=== PATIENT | female | born 1985 | race Caucasian/White ===

== ENCOUNTER 2019-08-09 14:20 | Outpatient (CLI) | payer BC, SELFPAY ==
--- NOTE | ~2019-08-09 | US_ITS ---
EXAMINATION: US venous doppler LE RT DATE: 08/09/2019 15:14 INDICATION: Right lower limb localized swelling. Third trimester of . TECHNIQUE: Grayscale ultrasound images without and with compression and Doppler ultrasound images of the right lower extremity veins were obtained. COMPARISON: None. FINDINGS: The visualized portions of right common femoral vein, profunda (deep) femoral vein, femoral vein, pop liteal vein, peroneal veins, posterior tibial veins, and greater saphenous vein outflow are patent. IMPRESSION: 1. No deep venous thrombosis. Reviewed, dictated and finalized at location A.
== END 2019-08-09 14:21 | disposition home or self-care (01) ==
PROVIDERS: PCP Obstetrics & Gynecology; Visit Provider Obstetrics & Gynecology
DX: R22.41 Localized swelling, mass and lump, right lower limb (principal)
CPT/HCPCS: 93971

== ENCOUNTER 2019-09-23 01:44 | Inpatient (IN) | payer BC, SELFPAY ==
[2019-09-23] VITALS (77 sets, daily range): BP systolic 85–146; BP diastolic 45–86; PULSE 72–123; RESP 18; TEMP 36.6–37.3; O2SAT 85–100; BMI 24.3
--- NOTE | 2019-09-23 01:44 | LDADM ---
This patient, Kojo Linares, was admitted to Labor/Delivery/Recovery 104 on 09/23/19 at 01:44. Plans for labor, pain management and were discussed with patient. Patient/family oriented to hospital policies and general routines including ID bracelet, bed and alarms, visiting hours, pain management, procedures, bathroom and other care routines, personal items, smoking policy, room service/diet and guest tray routines, security routines, and visiting hours. Patient/Family are encouraged to report perceived risks to care and to ask questions if they do not understand what they are told or what they should do. See OBIX for further documentation.
[2019-09-23] MEDS: LACTATED RINGERS 1,000 ML 999 ML IV CONT (04:05)
[2019-09-23 04:24] LABS: Basophils Absolute Auto 0.1 K/mm3 (0.0-0.1); Basophils Percent Auto 0.3 % (0.2-1.2); Eosinophils Absolute Auto 0.1 K/mm3 (0-0.3); Eosinophils Percent Auto 0.3 % (0-4.4); Hematocrit 34.7 % (37.0-47.0); Hemoglobin 11.7 g/dL (12.0-15.0); Immature Granulocyte Absolute 0.33 K/mm3 (0.00-0.031); Immature Granulocyte Percent A 1.9 % (0-0.5); Lymphocytes Absolute Auto 2.19 K/mm3 (0.9-3.2); Lymphocytes Percent Auto 12.5 % (18.3-44.2); Mean Corpuscular HGB Conc 33.7 g/dl (32-36); Mean Corpuscular Hemoglobin 30.5 pg (26-34); Mean Corpuscular Volume 90.6 fl (80-100); Mean Platelet Volume 10.4 fl (7.4-10.4); Monocytes Absolute Auto 0.6 K/mm3 (0.1-0.6); Monocytes Percent Auto 3.5 % (2.6-8.5); Neutrophils Absolute Auto 14.3 K/mm3 (1.3-6.7); Neutrophils Percent Auto 81.5 % (45.5-73.1); Platelet Count Result 278 k/mm3 (150-375); Red Blood Count 3.83 M/mm3 (4.2-5.4); Red Cell Distribution Width 13.5 % (11.5-14.5); White Blood Count 17.6 K/mm3 (4.5-10.0)
[2019-09-23] MEDS: LACTATED RINGERS 1,000 ML 125 ML IV CONT (04:35)
--- NOTE | 2019-09-23 04:55 | WPDANESEPPF ---
Anes - Initial Pre Proc Eval Procedure: labor epidural Date/Time: 09/23/19 04:55 Surgeon: Jaswant Hu MD Pre Op Diagnosis: labor pain Pre Op Diagnosis: Ctx Patient Data Age: 33 Gender: F Height: Weight: Last Vital Signs Pulse 111 H 09/23/19 04:52 BP 110/75 09/23/19 04:52 Pulse Ox 98 09/23/19 04:53 Allergies Allergy/AdvReac Type Severity Reaction Status Date / Time Sulfa (Sulfonamide Allergy Unknown Verified 08/31/19 13:36 Antibiotics) Home Medications Medication Instructions Recorded Confirmed Type PNV cmb#95-ferrous fumarate-FA 1 tablet PO DAILY 08/31/19 08/31/19 History [] Laboratory Tests 09/23/19 09/23/19 04:08 04:08 WBC 17.6 K/mm3 H K/mm3 (4.5-10.0) RBC 3.83 M/mm3 L M/mm3 (4.2-5.4) Hgb 11.7 g/dL L g/dL (12.0-15.0) Hct 34.7 % L % (37.0-47.0) MCV 90.6 fl fl (80-100) MCH 30.5 pg pg (26-34) MCHC 33.7 g/dl g/dl (32-36) RDW 13.5 % % (11.5-14.5) Plt Count 278 k/mm3 k/mm3 (150-375) MPV 10.4 fl fl (7.4-10.4) Immature Gran % (Auto) 1.9 % H % (0-0.5) Neut % (Auto) 81.5 % H % (45.5-73.1) Lymph % (Auto) 12.5 % L % (18.3-44.2) [place] % (Auto) 3.5 % % (2.6-8.5) Eos % (Auto) 0.3 % % (0-4.4) Baso % (Auto) 0.3 % % (0.2-1.2) Lymph # (Auto) 2.19 K/mm3 K/mm3 (0.9-3.2) [place] # (Auto) 0.6 K/mm3 K/mm3 (0.1-0.6) Eos # (Auto) 0.1 K/mm3 K/mm3 (0-0.3) Baso # (Auto) 0.1 K/mm3 K/mm3 (0.0-0.1) Abs Immat Gran (auto) 0.33 K/mm3 H K/mm3 (0.00-0.031) Absolute Neuts (auto) 14.3 K/mm3 H K/mm3 (1.3-6.7) Absolute Nucleated RBC 0.0 K/mm3 K/mm3 (0.0-0.012) Nucleated RBC % 0.0 % % (0.0-0.2) RPR Pending Patient hx anesthesia problems: none Family hx anesthesia problems: none PMFSH Family History Family History Father Heart attack Hypertension Mother Hypertension Social History Social History Smoking status: Never smoker Substance use: never Gender identity (if verbalized by the patient): Female Spiritual care concerns: No Anes - Eval Final PreProcedure Day of Procedure 09/23/19 04:55 Patient weight: overweight Heart: regular rate and rhythm Lungs: clear to auscultation and normal air movement Airway: Mallampati scale class II Neurological: alert and oriented ASA classification: II Anesthetic plan: proceed Anesthesia type and monitoring: regional epidural and standard monitoring Informed Consent: The patient's anesthetic plan and its attendant risks and benefits were discussed with the patient/family/POA. Questions were solicited and answers provided to the satisfaction of the patient/family/POA.
--- NOTE | 2019-09-23 05:40 | P.HPUP_ITS ---
History and Physical Update Update Date/Time: 09/23/19 05:40 33 yo at 38w6d who presents in labor. She endorses good FM. She denies vaginal bleeding or LOF. Her has been uncomplicated thus far. History and Physical has been reviewed, including an updated exam of the patien t. There are NO changes in the patient's condition. Risks, benefits, and alternatives have been discussed and questions answered. Patient agrees to proceed with procedure. A/P: 33 you G1 at 38w6d admit to L&D routine admission orders Rh+ GBS neg FHT cat 1 regular ctx on Divide continuous EFM expectant mangement
--- NOTE | 2019-09-23 08:28 | PM.OBPRVD ---
OB - Delivery Note Procedure Procedure: Patient pushed for a spontaneous vaginal delivery. The fetus was delivered atraumatically and placed on the maternal abdomen. The cord was clamped and cut after 1 minute of life. The cord was double clamped and cut and a segment of cord was collected for cord gases. Cord blood was collected for blood type and Coomb's testing. The placenta delivered spontaneously and was noted to be intact. The perineum was inspected and there was a 2nd degree perineal laceration. The laceration was repaired with 2-0 vicryl in the usual fashion. The uterus was firm and good hemostasis was noted. The patient and fetus were stable in the delivery room. Intrapartal events: None Induction method: none Delivery augmentation: rupture of membranes Delivery monitor: external FHT Route of delivery: Episiotomy description: None Laceration description: Perineal - 2nd Degree Delivery repair: vicryl Specimen: No Estimated blood loss (mL): 250 Anesthesia type: Epidural Disposition: floor () Complications: No immediate complications Baby Date of : 09/23/19 Time of : 08:13 Weeks of gestation at delivery: 38 gender: Female presentation: vertex position: Right Occiput Anterior Placenta delivery description: Spontaneous cord vessel description: 3 Vessels score one minute: 8 score five minutes: 9
[2019-09-23] MEDS: OXYTOCIN 30 UNITS/NS 500 ML 30 UNITS/500 ML BAG 125 UNITS IV CONT (09:59)
[2019-09-23] MEDS: IBUPROFEN 600 MG TABLET PO ×2 (11:30→20:07)
--- NOTE | 2019-09-23 17:37 | PC.NURSE ---
Patient transferred to post room #288 via wheelchair. Support person present. Oriented to unit, room, information board, rooming in, admission packet and security measures. Patient verbalizes understanding.
[2019-09-24 05:16] LABS: Hematocrit 31.2 % (37.0-47.0); Hemoglobin 10.4 g/dL (12.0-15.0)
--- NOTE | 2019-09-24 07:41 | PM.OBPNVD ---
OB - PN: Subj Subjective Date/time seen: 09/24/19 07:41 Patient comments: no complaints, pain well controlled and tolerating diet [place] feeding status: exclusively breast feeding Narrative: patient doing well this AM. No complaints. Pain is well controlled. She reports moderate bleeding. She is ambulating and voiding without difficulty. She is tolerating PO. She denies N/V, fever, chills. OB - PN: Obj Data Labs CBC & Chem 7: 09/24/19 04:31 Labs: Laboratory Results - last 24 hr 09/24/19 04:31 Hgb 10.4 L Hct 31.2 L OB - PN A/P Plan day: 1 Plan: routine care Comments: patient doing well H/H stable continue routine care Time Spent With Patient Time: Total time spent is greater than 50% in coordination of care (as documented) at patient's floor/unit and/or counseling patient: Time with patient: less than 15 minutes Review of Systems Review of Systems: All systems reviewed & are unremarkable except as noted in HPI and below Exam Const: General: comfortable and no acute distress Resp: Effort & Inspection: normal respiratory effort Cardio: Rate: regular rate GI: GI Palp: Yes Soft to palpation and No Tenderness to palpation present (GI) Auscultation: normal bowel sounds Other: fundus firm and below umbilicus. Psych: Affect: normal affect
[2019-09-24 08:00] VITALS: BP 128/81; PULSE 85; RESP 18; TEMP 36.8; O2SAT 99
[2019-09-24] MEDS: IBUPROFEN 600 MG TABLET PO ×3 (08:11→22:10)
[2019-09-24] MEDS: DOCUSATE SODIUM 100 MG CAPSULE PO (08:12)
[2019-09-24] MEDS: MULTIVIT/MIN/PREN/FOL AC/IRON TABLET 1 TAB PO (08:12)
--- NOTE | 2019-09-24 12:22 | WPDANLDPN2 ---
Anes-Prog Note L&D Date/Time: 09/24/19 12:22 Comfortable throughout: labor and delivery Neuraxial method: epidural Epidural/Spinal procedure site: clean & non-tender Neuro status: Neuro function grossly intact. Cardiovascular status: normal Respiratory status: normal Airway patency: baseline Mental status: baseline Post-Op hydration status: normal Vital Signs: Last Vital Signs Temp 37.1 C 09/23/19 20:20 Pulse 102 H 09/23/19 20:20 Resp 18 09/23/19 20:20 BP 128/77 09/23/19 20:20 Pulse Ox 98 09/23/19 20:20 Post-procedural complaints: none Patient feedback: Patient satisfied with anesthetic care.
[2019-09-24 19:48] VITALS: BP 128/62; PULSE 106; RESP 18; TEMP 37.2; O2SAT 98
[2019-09-25] MEDS: IBUPROFEN 600 MG TABLET PO (06:42)
[2019-09-25] MEDS: MULTIVIT/MIN/PREN/FOL AC/IRON TABLET 1 TAB PO (06:43)
--- NOTE | 2019-09-25 07:08 | PM.OBDSVD ---
OB - DS: Summary OB Procedures : None OB Procedures Intrapartum: Spontaneous Vag Delivery OB Procedures: : None Status at Discharge Functional status at discharge: independent ambulation Overall status at discharge: patient is back to baseline Time Spent with Patient Time attestation: Total time spent providing and/or coordinating discharge services: Time spent: Less than 30 minutes Exam Const: General: comfortable and no acute distress Resp: Effort & Inspection: normal respiratory effort Auscultation: clear to auscultation bilaterally Cardio: Rate: regular rate GI: GI Palp: Yes Soft to palpation Auscultation: normal bowel sounds Other: Fundus firm below umbilicus Psych: Appearance: grossly normal Mental Status: mental status grossly normal Affect: normal affect Discharge Plan Discharge Consulting providers: Yordy Hurtado Jr. Discharging Clinician: Matthew Choe Patient Disposition: Home, Self-Care Activity: as tolerated and pelvic rest Diet: regular Discharge Instructions: call or return for temperature >100.4, bleeding >2 pads/hr for 2 hrs, pain not controlled with medications, signs/symptoms of mastitis Patient Instructions: Antibiotic Form, Vaginal Delivery (DC) Stand Alone Forms: General Discharge Information Follow-up/Referrals: Jaswant Hu MD [Physician] - Discharge Medications: New Dermoplast (with menthol) 20-0.5 % Aerosol 1 spray topical PRN PRN (Reason: Perineal Discomfort) Qty: 1 RF: 0 Wnt-B-Aceifm Cream 1 applic topical PRN PRN (Reason: Sore Nipples) Qty: 1 RF: 0 ibuprofen 600 mg Tablet 600 mg PO Q6H PRN (Reason: Cramping) Qty: 30 RF: 0 Continued PNV cmb#95-ferrous fumarate-FA [] 28 mg iron- 800 mcg Tablet 1 tablet PO DAILY RF: 0 acetaminophen [Tylenol] 325 mg Tablet 325 mg PO ONCE PRN (Reason: Pain) RF: 0 famotidine [Pepcid] 20 mg Tablet 20 mg PO DAILY PRN (Reason: Heartburn) RF: 0 Discontinued diphenhydramine HCl [Unisom SleepGels] 50 mg Capsule 50 mg PO HS PRN (Reason: Sleep) RF: 0 Date of admission: 09/23/19 01:44 Primary Care Provider: PHYSICIAN,ARCHITECTURE FACULTY MEMBER Admitting Provider: Jaswant Hu Attending physician on admission: Jaswant Hu
[2019-09-25 08:05] VITALS: BP 131/88; PULSE 91; RESP 18; TEMP 37.3; O2SAT 97
[2019-09-25 08:20] LABS: Rapid Plasma Reagin Non-Reactive (NonReactive)
--- NOTE | 2019-09-25 11:15 | PC.NURSE ---
Mother is able to independently latch infant with appropriate positioning/alignment. She denies any nipple discomfort, is feeding as required and waking to feed if needed. has had at least 8 effective feedings in the past 24 hours, and is currently meeting outcomes for weight, output, jaundice and feeding frequencies. Mother will supplement as she feels infant requires. Mother states she will discontinue supplementation when her milk is in and feels infant is more consistent with feedings. Mother states she feels confident to continue effective with supplementation at home. Reviewed transition to breast milk, signs of adequate intake, and engorgement/relief. Instructed to call ICP if intake/output less than required. Reviewed regular medications mother is taking. Information provided per Joanne. Reviewed community resources on the [facility] website and in the Mom/Baby guide. Information on outpatient services provided. Mother has no further questions at this time.
[2019-09-26 10:10] VITALS: BP 121/81; PULSE 101; RESP 20; TEMP 36.8; O2SAT 99
== END 2019-09-25 11:49 | disposition home or self-care (01) | DRG 807 ==
LOC: ANHLDR 04:13 → ANHOB2 09-25 07:09 → ANHLDR 09-26 11:16 → ANHOB2 09-26 11:16
PROVIDERS: Admitting Provider Student in an Organized Health Care Education/Training Program; Visit Provider Student in an Organized Health Care Education/Training Program
DX: O36.8330 Maternal care for abnormalities of the fetal heart rate or rhythm, third trimester, not applicable or unspecified (principal); Z37.0 Single live birth; Z3A.38 38 weeks gestation of pregnancy; O70.1 Second degree perineal laceration during delivery
CPT/HCPCS: 36415; 85014; 85018; 85025; 86592; 86850; 86900; 86901; A9270; J2590; J3010; J7120

== ENCOUNTER 2020-11-14 14:00 | Outpatient (CLI) | payer BC, SELFPAY ==
--- NOTE | ~2020-11-14 | XR_ITS ---
XR sinus min 3V 11/14/2020 14:25 Indication: Chronic sinusitis. Fever. Procedure: 5 views of the paranasal sinuses Comparison: No prior studies for comparison. Findings: There is pneumatization of the sinuses without significant opacification. No air-fluid leve ls. No significant mucoperiosteal reaction is seen. Mastoids are pneumatized. Impression: 1: No significant sinus disease. Reviewed, dictated and finalized at location A. Impression: 1: No significant sinus disease.
== END 2020-11-14 14:01 | disposition home or self-care (01) ==
LOC: ANHIMG 14:05
PROVIDERS: PCP Family Medicine; Visit Provider Family Medicine
DX: J32.9 Chronic sinusitis, unspecified (principal)
CPT/HCPCS: 70220

== ENCOUNTER 2022-08-17 09:02 | Outpatient (CLI) | payer BC, SELFPAY ==
--- NOTE | 2022-08-17 09:21 | EST_ITS ---
Patient Info Name: Kojo Linares Age: 36 years : 1985 Gender: Female Ht: 68 in Wt: 155 lbs BSA: 1.84 m2 HR: 78 bpm BP: 125 / 72 mmHg Heart Rhythm: Sinus Rhythm Exam Date: 08/17/2022 10:00 AM Exam Location: [facility] Stress Patient Status: Outpatient Admit Date: 08/17/2022 Staff Ordering Physician: Loretta Aldridge NP Attending Provider: Loretta Aldridge NP Exercise Technologist: Julissa Diallo CT Exercise Physician: Gumaro Matute DO Exam Type: CA stress test treadmill Study Info Indications R06.09 - Other forms of dyspnea R07.89 - Other chest pain A treadmill exercise stress test was performed. Summary 1. 1. Negative [place] exercise stress test for ischemic ST changes by ECG criteria. 2. 2. Reduced functional capacity, achieving 8.9 METs of workload. 3. 3. Appropriate HR response to exercise. 4. 4. Appropriate HR recovery at 1 minute post exercise. 5. 5. No imaging with stress testing. 6. 6. Patient informed of the above results. Protocol: [place] Stress ECG Details Stage: REST Duration (min): 1 min : 17 sec Speed (mph): 0.0 Grade (%): 0 HR (bpm): 79 SBP (mmHg): 125 DBP (mmHg): 72 METS: --- Stage: REST Duration (min): 6 min : 33 sec Speed (mph): 0.0 Grade (%): 0 HR (bpm): 89 SBP (mmHg): 125 DBP (mmHg): 72 METS: --- Stage: STAGE 1 Duration (min): 1 min : 0 sec Speed (mph): 1.7 Grade (%): 10 HR (bpm): 109 SBP (mmHg): 125 DBP (mmHg): 72 METS: --- Stage: STAGE 1 Duration (min): 2 min : 0 sec Speed (mph): 1.7 Grade (%): 10 HR (bpm): 129 SBP (mmHg): 125 DBP (mmHg): 72 METS: --- Stage: STAGE 1 Duration (min): 3 min : 0 sec Speed (mph): 1.7 Grade (%): 10 HR (bpm): 135 SBP (mmHg): 150 DBP (mmHg): 71 METS: --- Stage: STAGE 2 Duration (min): 1 min : 0 sec Speed (mph): 2.5 Grade (%): 12 HR (bpm): 140 SBP (mmHg): 150 DBP (mmHg): 71 METS: --- Stage: STAGE 2 Duration (min): 2 min : 0 sec Speed (mph): 2.5 Grade (%): 12 HR (bpm): 147 SBP (mmHg): 159 DBP (mmHg): 64 METS: --- Stage: STAGE 2 Duration (min): 3 min : 0 sec Speed (mph): 2.5 Grade (%): 12 HR (bpm): 153 SBP (mmHg): 159 DBP (mmHg): 64 METS: --- Stage: STAGE 3 Duration (min): 1 min : 0 sec Speed (mph): 3.4 Grade (%): 14 HR (bpm): 160 SBP (mmHg): 155 DBP (mmHg): 69 METS: --- Stage: STAGE 3 Duration (min): 1 min : 0 sec Speed (mph): 3.4 Grade (%): 14 HR (bpm): 160 SBP (mmHg): 155 DBP (mmHg): 69 METS: --- Stage: RECOVERY Duration (min): 0 min : 59 sec Speed (mph): 0.0 Grade (%): 0 HR (bpm): --- SBP (mmHg): 155 DBP (mmHg): 69 METS: --- Stage: RECOVERY Duration (min): 1 min : 59 sec Speed (mph): 0.0 Grade (%): 0 HR (bpm): --- SBP (mmHg): 155 DBP (mmHg): 69 METS: --- Stage: RECOVERY Duration (min): 2 min : 49 sec Speed (mph): 0.0 Grade (%): 0 HR (bpm): 103 SBP
== END 2022-08-17 09:03 | disposition home or self-care (01) ==
LOC: ANHCARD 09:03
PROVIDERS: PCP Nurse Practitioner Family; Visit Provider Nurse Practitioner
DX: R07.89 Other chest pain (principal); R06.09 Other forms of dyspnea
CPT/HCPCS: 93017

== ENCOUNTER 2024-02-12 12:47 | Outpatient (CLI) | payer BC, SELFPAY ==
--- OUTSIDE RECORDS SUMMARY | 2024-02-19 19:33 | XMS_ITS ---
Author Organization [facility] [employer] Address [address] [place] [address] Care Team Providers Care Front End Assistant Name Role Phone Zoe Kinney Unavailable [phone] Medications Medication SIG (Take, Route, Frequency, Duration) Notes Start Date End Date Status Vyvanse 60 MG 1 capsule in the mor shameka Oral Once a day for 30 days 01/27/2024 Active Social History Sex Assigned At : Social History Observation Description Sex Assigned At Female Encounters Encounter Location Date Provider Diagnosis [facility] [employer] [address] [place] [address] 01/27/2024 Zoe Kinney Attention-deficit hyperactivity disorder, combined type F90.2 Assessments Encounter Date Diagnosis (ICD Code) Assessment Notes Treatment Notes Treatment Clinical Notes Section Notes 01/27/2024 Attention-deficit hyperactivity disorder, combined type (ICD-10 - F90.2) Plan Of Treatment Medication Medication Name Sig Start Date Stop Date Notes Vyvanse 60 MG 1 capsule in the mor shameka Oral Once a day for 30 days 01/27/2024 Next Appt Details Provider Name:Zoe berumen, 03/27/2024 08:30:00 AM, [address], [place], [address], Progress Notes * BELKYS MARTINEZ SDOB:1985 (38 yo F)Acc No.[id number]:01/27/2024 Patient:?BELKYS MARTINEZ :1985???Age:38 Y???Sex:Female Address:[address] [place], [address] * Refills? Refill Vyvanse Capsule, 60 MG, Oral, 30, 1 capsule in the morning, Once a day, 30 days, Refills=0 * true * Date:? 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
--- OUTSIDE RECORDS SUMMARY | 2024-02-19 19:33 | XMS_ITS ---
Author Organization [facility] [employer] Address [address] [facility] [address] [place] [address] Care Team Providers Care Hand Almond Blancher Name Role Phone Zoe Kinney Unavailable [phone] REASON FOR VISIT Refill for Vyvanse Medications Medication SIG (Take, Route, Frequency, Duration) Notes Start Date End Date Status Lisdexamfetamine Dimesylate 50 MG 1 capsule in the morning Orally Once a day for 30 days 01/06/2024 Active Social History Sex Assigned At : Social History Observation Description Sex Assigned At Female Encounters Encounter Location Date Provider Diagnosis [facility] [address] [facility] [address] [place] [address] 01/06/2024 Zoe Kinney Attention-deficit hyperactivity disorder, combined type F90.2 Assessments Encounter Date Diagnosis (ICD Code) Assessment Notes Treatment Notes Treatment Clinical Notes Section Notes 01/06/2024 Attention-deficit hyperactivity disorder, combined type (ICD-10 - F90.2) Plan Of Treatment Medication Medication Name Sig Start Date Stop Date Notes Lisdexamfetamine Dimesylate 50 MG 1 caps ule in the morning Orally Once a day for 30 days 01/06/2024 Next Appt Details Provider Name:Zoe berumen, 03/27/2024 08:30:00 AM, [address], [facility] [address], [place], [address], Progress Notes * BELKYS MARTINEZ SDOB:1985 (38 yo F)Acc No.[id number]:01/06/2024 Patient:?BELKYS MARTINEZ :1985???Age:38 Y???Sex:Female Address:[facility] [address] [place], [address] * Refills? Refill Lisdexamfetamine Dimesylate Capsule, 50 MG, Orally, 30, 1 capsule in the morning, Once a day, 30 days, Refills=0 * true * Date:? 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
--- OUTSIDE RECORDS SUMMARY | 2024-02-19 19:33 | XMS_ITS | Patient Health Record ---
Author Organization [facility] As [facility] Address [address] [place] [address] Care Team Providers Care Detective Chief Name Role Phone Zoe Kinney Unavailable [phone] Viri Coleman Unavailable [phone] Munira Rowley Unavailable [phone] Elise Haider Unavailable [phone] Migration, Provider Unavailable Unavailable Allergies Allergen (clinical drug ingredient) Drug/Non Drug Allergy documented on EMR Reaction Allergy Type Onset Date Status Substance with sulfonamide structure and antibacterial mechanism of action (substance) SULFA (SULFONAMIDE ANTIBIOTICS) (uncoded) Unknown Allergy 05/27/2023 Active Results Component Value Reference Range Notes DRUG SCREEN, 14 DRUGS (DETEC TIMED), URINE Reviewed date:05/27/2023 12:00:00 AM Interpretation: Performing Lab: Notes/Report: Amphetamine positive Barbiturates negative Benzodiazipine negative Buprenorphine negative Cocaine negative MDMA/Ectasy negative Methadone negative Methamphetamine negative Morphine negative Oxycodone negative Phenocyclidine negative THC negative UDT Reviewed date:08/30/2023 09:22:35 PM Interpretation: Performing Lab: Notes/Report: THC neg 0 - 50 ng/ml Cocaine neg 0 - 300 ng/ml Amphetamine pos 0 - 1000 ng/ml Buprenorphine (BUP) neg 0 - 10 ng/ml Secobarbital (Bar) neg 0 - 300 ng/ml Oxazepam (BZO) neg 0 - 300 ng/ml 4-wifynffpgr-5,1-vhrnvvby-5, 3-diphenylpyrrolidine (EDDP) neg 0 - 300 ng/ml Methamphetamine (MET) neg 0 - 1000 ng/ml Methylenedioxymethamphetamine (MDMA) neg 0 - 500 ng/ml Morphine (MOP 300/[id number]) neg 0 - 300 ng/ml Methadone (MTD) neg 0 - 300 ng/ml Phencyclidine (PCP) neg 0 - 25 ng/ml Propoxyphene (PPX) neg 0 - 300 ng/ml Nortriptyline (TCA) neg 0 - 1000 ng/ml UDT Reviewed date:01/25/2024 10:54:37 PM Interpretation: Performing Lab: Notes/Report: THC n 0 - 50 ng/ml Cocaine n 0 - 300 ng/ml Amphetamine p 0 - 1000 ng/ml Buprenorphine (BUP) n 0 - 10 ng/ml Secobarbital (Bar) n 0 - 300 ng/ml Oxazepam (BZO) n 0 - 300 ng/ml 3-nfucuwhjpq-5,8-qqzhhwfq-8, 3-diphenylpyrrolidine (EDDP) n 0 - 300 ng/ml Methamphetamine (MET) n 0 - 1000 ng/ml Methylenedioxymethamphetamine (MDMA) n 0 - 500 ng/ml Morphine (MOP 300/[id number]) n 0 - 300 ng/ml Methadone (MTD) n 0 - 300 ng/ml Phencyclidine (PCP) n 0 - 25 ng/ml Propoxyphene (PPX) n 0 - 300 ng/ml Nortriptyline (TCA) n 0 - 1000 ng/ml Oxycodone n 0 - 300 ng/ml Reason For Referral No Information Medications Medication SIG (Take, Route, Frequency, Duration) Notes Start Date End Date Status Tretinoin 0.05 % External 05/27/2023 Ac tive Multivitamin Adults Oral 05/27/2023 Active Vyvanse 60 MG 1 capsule in the morning Oral Once a day for 30 days 01/27/2024 Active buPROPion HCl ER (XL) 150 MG 1 tablet in the morning Oral Once a day for 90 days Active Sertraline HCl 100 MG 1.5 tablet Oral On ce a day for 90 days 05/27/2023 Active traZODone HCl 50 MG 1 tablet at bedtime as needed Oral Once a day for 90 days 05/27/2023 Active Lisdexamfetamine Dimesylate 50 MG 1 capsule in the morning Orally Once a day for 30 days 01/06/2024 Active Benzonatate 100 MG Oral 05/27/2023 Active Social History Tobacco Use: Social History Observation Description Date Details (start date - stop date) Never Smoker NA - NA Sex Assigned At : Social History Observation Description Sex Assigned At Female Tobacco Control (Standard) Question Answer Notes Tobacco use: Nonsmoker AUDIT-C (Standard) Question Answer Notes Did you have a drink contain ing alcohol in the past year? Yes How often did you have six o r more drinks on one occasion in the past year? Never (0 point) How many drinks did you have on a typical day when you were drinking in the past year? 1 or 2 drinks (0 point) How often did you have a dri nk containing alcohol in the past year? Monthly or less (1 point) Section Notes: Social History Substance Use Do you or have you ever smoked tobacco?: Never smoker How much tobacco do you smoke?: None Do you or have you ever used e-cigarettes or vape?: Never used electronic cigarettes What was the date of your most recent tobacco screening?: 05/27/2023 Has tobacco cessation counseling been provided?: No What is your level of alcohol consumption?: None Do you use any illicit or recreational drugs?: No Which illicit or recreational drugs have you used?: THC Have you used IV drugs?: No What is your level of caffeine consumption?: Moderate Education and Occupation What is the highest grade or level of school you have completed or the highest degree you have received?: Bachelor's degree (e.g., BA, AB, BS) Are you currently employed?: Yes Who is your employer?: [employer] 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 What is your relationship status?: Are you sexually active?: Yes Do you use protection during sex?: Usually How many children do you have?: 1 Home and Environment Are there any guns present in your home?: No Lifestyle Do you feel stressed (tense, restless, nervous, or anxious, or unable to sleep at night)?: To some extent Advance Directive Do you have an advance directive?: No Do you have a medical power of consumer attorney?: No Public Health and Travel Have you been to an area known to be high risk for COVID-19?: No Gender Identity and LGBTQ Identity Gender identity: Identifies as Female Assigned sex at : Female Sexual orientation: Straight or heterosexual Social History Substance Use Do you or have you ever smoked tobacco?: Never smoker How much tobacco do you smoke?: None Do you or have you ever used e-cigarettes or vape?: Never used electronic cigarettes What was the date of your most recent tobacco screening?: 05/27/2023 Has tobacco cessation counseling been provided?: No What is your level of alcohol consumption?: None Do you use any illicit or recreational drugs?: No Which illicit or recreational drugs have you used?: THC Have you used IV drugs?: No What is your level of caffeine consumption?: Moderate Education and Occupation What is the highest grade or level of school you have completed or the highest degree you have received?: Bachelor's degree (e.g., BA, AB, BS) Are you currently employed?: Yes Who is your employer?: [employer] 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 What is your relationship status?: Are you sexually active?: Yes Do you use protection during sex?: Usually How many children do you have?: 1 Home and Environment Are there any guns present in your home?: No Lifestyle Do you feel stressed (tense, restless, nervous, or anxious, or unable to sleep at night)?: To some extent Advance Directive Do you have an advance directive?: No Do you have a medical power of consumer attorney?: No Public Health and Travel Have you been to an area known to be high risk for COVID-19?: No Gender Identity and LGBTQ Identity Gender identity: Identifies as Female Assigned sex at : Female Sexual orientation: Straight or heterosexual Social History Substance Use Do you or have you ever smoked tobacco?: Never smoker How much tobacco do you smoke?: None Do you or have you ever used e-cigarettes or vape?: Never used electronic cigarettes What was the date of your most recent tobacco screening?: 05/27/2023 Has tobacco cessation counseling been provided?: No What is your level of alcohol consumption?: None Do you use any illicit or recreational drugs?: No Which illicit or recreational drugs have you used?: THC Have you used IV drugs?: No What is your level of caffeine consumption?: Moderate Education and Occupation What is the highest grade or level of school you have completed or the highest degree you have received?: Bachelor's degree (e.g., BA, AB, BS) Are you currently employed?: Yes Who is your employer?: [employer] 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 What is your relationship status?: Are you sexually active?: Yes Do you use protection during sex?: Usually How many children do you have?: 1 Home and Environment Are there any guns present in your home?: No Lifestyle Do you feel stressed (tense, restless, nervous, or anxious, or unable to sleep at night)?: To some extent Advance Directive Do you have an advance directive?: No Do you have a medical power of consumer attorney?: No Public Health and Travel Have you been to an area known to be high risk for COVID-19?: No Gender Identity and LGBTQ Identity Gender identity: Identifies as Female Assigned sex at : Female Sexual orientation: Straight or heterosexual Social History Substance Use Do you or have you ever smoked tobacco?: Never smoker How much tobacco do you smoke?: None Do you or have you ever used e-cigarettes or vape?: Never used electronic cigarettes What was the date of your most recent tobacco screening?: 05/27/2023 Has tobacco cessation counseling been provided?: No What is your level of alcohol consumption?: None Do you use any illicit or recreational drugs?: No Which illicit or recreational drugs have you used?: THC Have you used IV drugs?: No What is your level of caffeine consumption?: Moderate Education and Occupation What is the highest grade or level of school you have completed or the highest degree you have received?: Bachelor's degree (e.g., BA, AB, BS) Are you currently employed?: Yes Who is your employer?: [employer] 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 What is your relationship status?: Are you sexually active?: Yes Do you use protection during sex?: Usually How many children do you have?: 1 Home and Environment Are there any guns present in your home?: No Lifestyle Do you feel stressed (tense, restless, nervous, or anxious, or unable to sleep at night)?: To some extent Advance Directive Do you have an advance directive?: No Do you have a medical power of consumer attorney?: No Public Health and Travel Have you been to an area known to be high risk for COVID-19?: No Gender Identity and LGBTQ Identity Gender identity: Identifies as Female Assigned sex at : Female Sexual orientation: Straight or heterosexual Problems Problem Type SNOMED Code ICD Code Onset Dates Problem Status W/U Status Risk Notes Problem Mild recurrent major depression (71088573) Major depressive disorder, recurrent, mild (F33.0) 05/27/19 24 Active confirmed Problem Generalized anxiety disorder (24484422) Generalized anxiety disorder (F41.1) 05/27/19 24 Active confirmed Problem Primary insomnia (4213822) Primary insomnia (F51.01) 05/27/19 24 Active confirmed Problem Attention deficit hyperactivity disorder, combined type (69250546) Attention-deficit hyperactivity disorder, combined type (F90.2) 07/07/19 Active confirmed Problem Obsessive-compuls marshall disorder (601961208) Obsessive-compuls marshall disorder, unspecified (F42.9) 05/27/19 24 Active confirmed Vital Signs Heart Rate 105 /min 01/25/2024 Blood pressure diastolic 75 mm Hg 01/25/2024 Height-cm 172.72 cm 01/25/2024 Weight-kg 67.59 kg 01/25/2024 Height 68.00 in 01/25/2024 Blood pressure systolic 114 mm Hg 01/25/2024 Weight 149 lbs 01/25/2024 BMI 22.65 kg/m2 01/25/2024 Encounters Encounter Location Date Provider Diagnosis [employer] [address] [address] 03/01/2023 Elise Haider Major depressive disorder, recurrent, mild F33.0 ; Primary insomnia F51.01 ; Generalized anxiety disorder F41.1 ; Obsessive-compulsive disorder, unspecified F42.9 and Attention-deficit hyperactivity disorder, combined type F90.2 [employer] [address] [place] [address] 04/01/2023 Elise Haider Attention-deficit hyperactivity disorder, combined type F90.2 ; Primary insomnia F51.01 ; Generalized anxiety disorder F41.1 ; Major depressive disorder, recurrent, mild F33.0 and Obsessive-compulsive disorder, unspecified F42.9 [facility] [address] [facility] [address] [place] [address] 04/29/2023 Elise Haider Obsessive-compulsive disorder, unspecified F42.9 ; Major depressive disorder, recurrent, mild F33.0 ; Generalized anxiety disorder F41.1 ; Primary insomnia F51.01 and Attention-deficit hyperactivity disorder, combined type F90.2 [place] [address] [facility] [address] [place] [address] 05/27/2023 Elisecristobal Haider Other detention (current) drug therapy Z79.899 ; Attention-deficit hyperactivity disorder, combined type F90.2 ; Major depressive disorder, recurrent, mild F33.0 ; Obsessive-compulsive disorder, unspecified F42.9 ; Generalized anxiety disorder F41.1 and Primary insomnia F51.01 [facility] [employer] [address] 07/07/2023 Simone Lai Attention-deficit hyperactivity disorder, combined type F90.2 [facility] [place] [address] [facility] [address] [place] [address] 08/30/2023 Elise Haider Attention-deficit hyperactivity disorder, combined type F90.2 ; Major depressive disorder, recurrent, mild F33.0 ; Obsessive-compulsive disorder, unspecified F42.9 ; Generalized anxiety disorder F41.1 and Primary insomnia F51.[address] [address] 09/29/2023 Elise Haider Attention-deficit hyperactivity disorder, combined type F90.2 ; Major depressive disorder, recurrent, mild F33.0 ; Obsessive-compulsive disorder, unspecified F42.9 ; Generalized anxiety disorder F41.1 and Primary insomnia F51.01 [facility] [place] [id number] [facility] [address] [place] [address] 10/06/2023 Viri Martinez Attention-deficit hyperactivity disorder, combined type F90.2 ; Major depressive disorder, recurrent, mild F33.0 ; Obsessive-compulsive disorder, unspecified F42.9 and Generalized anxiety disorder F41.1 [facility] [place] [address] [place] [address] 11/10/2023 Elisecristobal Haider Attention-deficit hyperactivity disorder, combined type F90.2 ; Major depressive disorder, recurrent, mild F33.0 ; Obsessive-compulsive disorder, unspecified F42.9 ; Generalized anxiety disorder F41.1 and Primary insomnia F51.01 [facility], [facility] [address] [place] [address] 12/09/2023 Viri Martinez Attention-deficit hyperactivity disorder, combined type F90.2 ; Major depressive disorder, recurrent, mild F33.0 ; Obsessive-compulsive disorder, unspecified F42.9 and Generalized anxiety disorder F41.1 [facility] [address] [place] [address] 01/25/2024 Zoe Goodeaisha Attention-deficit hyperactivity disorder, combined type F90.2 ; Major depressive disorder, recurrent, mild F33.0 ; Generalized anxiety disorder F41.1 ; Obsessive-compulsive disorder, unspecified F42.9 and Primary insomnia F51.01 [facility], [facility] [address] [place] [address] 04/29/2023 Provider Migration [facility], [facility] [address] [place] [address] 05/31/2023 Provider Migration [facility], [facility] [address] [place] [address] 07/07/2023 Provider Migration [facility], [facility] [address] [place] [address] 07/08/2023 Provider [facility], [facility] [address] [place] [address] 07/10/2023 Provider Migration [facility], [facility] [address] [place] [address] 07/11/2023 Provider Migration [facility], [facility] [address] [place] [address] 12/27/2023 Elise Haider [facility], [facility] [address] [place] [address] 08/04/2023 Elise Haider [facility], [facility] [address] [place] [address] 08/19/2023 Elise Haider [facility], [facility] [address] [place] [address] 09/24/2023 Munira Rowley Attention-deficit hyperactivity disorder, combined type F90.2 [facility], [facility] [address] [place] [address] 10/12/2023 Elise Haider [facility], [facility] [address] [place] [address] 10/15/2023 Elisecristobal Haider [facility], [facility] [address] [place] [address] 10/29/2023 Elise Haider [facility], [facility] [address] [place] [address] 10/29/2023 Elise Meliza Attention-deficit hyperactivity disorder, combined type F90.2 [facility], [facility] [address] [place] [address] 10/29/2023 Elise Haider [facility], [facility] [address] [place] [address] 12/03/2023 Elise Haider Attention-deficit hyperactivity disorder, combined type F90.2 and Major depressive disorder, recurrent, mild F33.0 [facility], [facility] [address] [place] [address] 12/18/2023 Elisecristobal Bedollatabatha [facility], [facility] [address] [place] [address] 12/20/2023 Elise Bedollapollomoonpolo [facility], [facility] [address] [place] [address] 12/20/2023 Elise Graemetabatha [facility], [facility] [address] [place] [address] 01/06/2024 Zoe Kinney Attention-deficit hyperactivity disorder, combined type F90.2 [facility], [facility] [address] [place] [address] 01/27/2024 Zoe Kinney Attention-deficit hyperactivity disorder, combined type F90.2 Assessments Encounter Date Diagnosis (ICD Code) Assessment Notes Treatment Notes Treatment Clinical Notes Section Notes 08/30/2023 Attention-defic it hyperactivity disorder, combined type (ICD-10 - F90.2) UDS +amph some increase in OCD type thoughts. discuss options, increase sertraline potentially decrease stimulant if making more anxious (she does not think it is-but more stressors), or wait for therapy. She would actually like to try decrease bupropion instead and see, review possible discontinuation effects. scheduled for therapy intake with Viri next month f/u 1 month, earlier if concerns send scripts to [facility] except vyvanse, she is going to check local pharmacy to see if they have in stock and let us know. med: cont vyvanse 50mg qam 08/30/2023 Major depressive disorder, recurrent, mild (ICD-10 - F33.0) decrease bupropion xl to 150mg qam 01/27/2024 Attention-defic it hyperactivity disorder, combined type (ICD-10 - F90.2) 12/03/2023 Attention-defic it hyperactivity disorder, combined type (ICD-10 - F90.2) 01/06/2024 Attention-defic it hyperactivity disorder, combined type (ICD-10 - F90.2) 01/25/2024 Major depressive disorder, recurrent, mild (ICD-10 - F33.0) Assessment and Plan: 1. ADHD - notes vyvanse is beneficial but expresses concerns with continued concentration deficits. Adderall more effect in past but not tolerable. - hesitancy previously for vyvanse to worsen anxiety and/or OCD, but does not appear to have made a difference. Plan: - increase vyvanse to 60 mg qam, (note prefers brand name) - monitor for activation worsening anxiety and/or OCD symptoms 2. depression - stable, some days down mood, lack of motivation, but manageable Plan: - Continue sertraline 150 mg daily - Continue bupropion xl 150 mg daily 3. anxiety/OCD - Patient reports anxiety and OCD symptoms as mininmal, manageable and better than before Plan: - continue medications as above 4. Insomnia - Patient reports good sleep with trazodone, has been taking it for almost 10 years Plan: - continue trazodone 50 mg at bedtime Follow up in 2 months, sooner if concens arise 12/09/2023 Attention-defic it hyperactivity disorder, combined type (ICD-10 - F90.2) OCD and Intrusive Thoughts - Assessment: Kojo reports experiencing anxiety primarily stemming from OCD and intrusive thoughts, which are less frequent but still present. She is currently on sertraline 100 mg and clonazepam 0.5 mg, which she finds beneficial and has no plans to discontinue. - Plan: - Continue current medication regimen of sertraline 100 mg and clonazepam 0.5 mg. - Monitor the frequency and intensity of intrusive thoughts and OCD symptoms in subsequent sessions. Anxiety Management - Assessment: Kojo expresses ongoing anxiety related to various life stressors including work and family health concerns. She scores her anxiety as 3 out of 10, indicating moderate levels that fluctuate based on external factors. Kojo mentions feeling nervous, anxious, or on edge more than half the days. - Plan: - Introduce and explore the DARE method, focusing on techniques such as defusing, allowing, running toward, and engaging with anxiety. - Encourage Kojo to read or listen to the DARE book to further her understanding and application of these techniques. - Consider integrating cognitive behavioral therapy (CBT) and mindfulness practices in future sessions to manage anxiety. - Introduce and practice the tapping technique (Emotional Glady Technique) as an additional coping strategy. Family Dynamics and Support - Assessment: Kojo discusses concerns about her parents' health and the care of her elderly grandmother, contributing to her stress and anxiety levels. Her parents are in their early 70s and experiencing health issues. Her 91-year-old blind grandmother recently moved to assisted living. - Plan: - Encourage open communication with family members regarding health and future planning. - Suggest discussing plans for elder care and end-of-life preferences to reduce uncertainty and anxiety. - Provide support in navigating these family dynamics and reinforce the importance of self-care amidst family caregiving responsibilities. Marital and Social Support - Assessment: Kojo mentions that her 's behavior and lack of understanding regarding her anxiety contribute to her stress, although he does not discourage her from taking medication. There are issues with shared household responsibilities and differing views on managing their child's behavior. - Plan: - Recommend couples counseling to address communication issues and improve mutual understanding and support regarding mental health challenges. - Encourage Kojo to set boundaries regarding complaint-sharing and to implement transition steps to manage stress post-work. - Suggest establishing a structured complaint time or worry time to limit the impact of negative discussions on their relationship. 01/25/2024 Attention-defic it hyperactivity disorder, combined type (ICD-10 - F90.2) Assessment and Plan: 1. ADHD - notes vyvanse is beneficial but expresses concerns with continued concentration deficits. Adderall more effect in past but not tolerable. - hesitancy previously for vyvanse to worsen anxiety and/or OCD, but does not appear to have made a difference. Plan: - increase vyvanse to 60 mg qam, (note prefers brand name) - monitor for activation worsening anxiety and/or OCD symptoms 2. depression - stable, some days down mood, lack of motivation, but manageable Plan: - Continue sertraline 150 mg daily - Continue bupropion xl 150 mg daily 3. anxiety/OCD - Patient reports anxiety and OCD symptoms as mininmal, manageable and better than before Plan: - continue medications as above 4. Insomnia - Patient reports good sleep with trazodone, has been taking it for almost 10 years Plan: - continue trazodone 50 mg at bedtime Follow up in 2 months, sooner if concens arise 04/01/2023 Major depressive disorder, recurrent, mild (ICD-10 - F33.0) 04/01/2023 Generalized anxiety disorder (ICD-10 - F41.1) 04/01/2023 Primary insomnia (ICD-10 - F51.01) 04/01/2023 Attention-defic it hyperactivity disorder, combined type (ICD-10 - F90.2) 04/01/2023 Obsessive-compu lsive disorder, unspecified (ICD-10 - F42.9) 09/29/2023 Major depressive disorder, recurrent, mild (ICD-10 - F33.0) cont bupropion xl 150mg qam tolerated decrease wellbutrin, still having some obsessive thoughts. option to change meds again, increase sertraline, but also she had covid this month, missed meds. she would rather wait and see a little longer, get past being sick, etc. plus starting counseling sent 90 day of scripts last visit (other than vyvanse) f/u in 6 wks, earlier if concerns 09/29/2023 Attention-defic it hyperactivity disorder, combined type (ICD-10 - F90.2) cont vyvanse 50mg qam 11/10/2023 Attention-defic it hyperactivity disorder, combined type (ICD-10 - F90.2) cont vyvanse 50mg qam 10/06/2023 Attention-defic it hyperactivity disorder, combined type (ICD-10 - F90.2) Psychosocial Assessment Presenting Problem I am having intrusive thoughts that won't stop . Pt stated she recalls OCD symptoms starting in middle school (possibly before). She would need to look at the clock at certain times to prevent her from dying. Her parents did not believe in getting her help for either OCD or ADHD. She kept her intrusive thoughts private until last year as she thought it was just anxiety getting worse. Everything got really bad when I had depression . Family Origin (/children ): Kojo was born and raised in [place]. She has an older sister (4.5 years) that lives in [place]. Parents are (pt was 15 years old when they ). Mom is remarried. Dad was remarried but in 2014. Childhood Family Dynamic: Pt and her of 5 years have a 4 year old daughter. They do not plan to have any more children. Trauma/PTSD: Dad was an alcoholic, a closet drinker. He was angry, not physically violent but a bully and annoying. Mom was hypercritical. Education and Occupation: Bachelor's Degree in [email or web address] from [employer]. Then got her associates in [employer]. 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 : None Support System: and co-workers are supportive and helpful. Has a long time friend, a group of 10 internet friends, and some friends from . Sister is identified as helpful and supportive. . Drug/ETOH use/Pattern of use/treatment? My and I drank too much before we had our daughter. It was never an issue. I don't drink much anymore . Medical: None Spirituality: Pt was raised attending a Anglican Taoist. She does not believe in organized episcopalian but hopeful there is a God, afterlife. Other family members with mental illness or substance abuse/addiction issues: Father, recovering alcoholic Mom, anger, depression, and anxiety Sister, depression Legal: None 07/07/2023 Attention-defic it hyperactivity disorder, combined type (ICD-10 - F90.2) 05/27/2023 Major depressive disorder, recurrent, mild (ICD-10 - F33.0) 05/27/2023 Generalized anxiety disorder (ICD-10 - F41.1) 05/27/2023 Primary insomnia (ICD-10 - F51.01) 05/27/2023 Attention-defic it hyperactivity disorder, combined type (ICD-10 - F90.2) 05/27/2023 Other detention (current) drug therapy (ICD-10 - Z79.899) 05/27/2023 Obsessive-compu lsive disorder, unspecified (ICD-10 - F42.9) 04/29/2023 Major depressive disorder, recurrent, mild (ICD-10 - F33.0) 04/29/2023 Generalized anxiety disorder (ICD-10 - F41.1) 04/29/2023 Primary insomnia (ICD-10 - F51.01) 04/29/2023 Attention-defic it hyperactivity disorder, combined type (ICD-10 - F90.2) 04/29/2023 Obsessive-compu lsive disorder, unspecified (ICD-10 - F42.9) 03/01/2023 Major depressive disorder, recurrent, mild (ICD-10 - F33.0) 03/01/2023 Generalized anxiety disorder (ICD-10 - F41.1) 03/01/2023 Primary insomnia (ICD-10 - F51.01) 03/01/2023 Attention-defic it hyperactivity disorder, combined type (ICD-10 - F90.2) 03/01/2023 Obsessive-compu lsive disorder, unspecified (ICD-10 - F42.9) 10/29/2023 Attention-defic it hyperactivity disorder, combined type (ICD-10 - F90.2) 10/06/2023 Major depressive disorder, recurrent, mild (ICD-10 - F33.0) Psychosocial Assessment Presenting Problem I am having intrusive thoughts that won't stop . Pt stated she recalls OCD symptoms starting in middle school (possibly before). She would need to look at the clock at certain times to prevent her from dying. Her parents did not believe in getting her help for either OCD or ADHD. She kept her intrusive thoughts private until last year as she thought it was just anxiety getting worse. Everything got really bad when I had depression . Family Origin (/children ): Kojo was born and raised in [place]. She has an older sister (4.5 years) that lives in [place]. Parents are (pt was 15 years old when they ). Mom is remarried. Dad was remarried but in 2014. Childhood Family Dynamic: Pt and her of 5 years have a 4 year old daughter. They do not plan to have any more children. Trauma/PTSD: Dad was an alcoholic, a closet drinker. He was angry, not physically violent but a bully and annoying. Mom was hypercritical. Education and Occupation: Bachelor's Degree in [employer] from [employer]. Then got her associates in [employer], [employer]. 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 : None Support System: and co-workers are supportive and helpful. Has a long time friend, a group of 10 internet friends, and some friends from . Sister is identified as helpful and supportive. . Drug/ETOH use/Pattern of use/treatment? My and I drank too much before we had our daughter. It was never an issue. I don't drink much anymore . Medical: None Spirituality: Pt was raised attending a Anglican Taoist. She does not believe in organized episcopalian but hopeful there is a God, afterlife. Other family members with mental illness or substance abuse/addiction issues: Father, recovering alcoholic Mom, anger, depression, and anxiety Sister, depression Legal: None 10/06/2023 Obsessive-compu lsive disorder, unspecified (ICD-10 - F42.9) Psychosocial Assessment Presenting Problem I am having intrusive thoughts that won't stop . Pt stated she recalls OCD symptoms starting in middle school (possibly before). She would need to look at the clock at certain times to prevent her from dying. Her parents did not believe in getting her help for either OCD or ADHD. She kept her intrusive thoughts private until last year as she thought it was just anxiety getting worse. Everything got really bad when I had depression . Family Origin (/children ): Kojo was born and raised in [place]. She has an older sister (4.5 years) that lives in [place]. Parents are (pt was 15 years old when they ). Mom is remarried. Dad was remarried but in 2014. Childhood Family Dynamic: Pt and her of 5 years have a 4 year old daughter. They do not plan to have any more children. Trauma/PTSD: Dad was an alcoholic, a closet drinker. He was angry, not physically violent but a bully and annoying. Mom was hypercritical. Education and Occupation: Bachelor's Degree in [employer] from [employer]. Then got her associates in [employer], [employer]. 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 : None Support System: and co-workers are supportive and helpful. Has a long time friend, a group of 10 internet friends, and some friends from . Sister is identified as helpful and supportive. . Drug/ETOH use/Pattern of use/treatment? My and I drank too much before we had our daughter. It was never an issue. I don't drink much anymore . Medical: None Spirituality: Pt was raised attending a Anglican Taoist. She does not believe in organized episcopalian but hopeful there is a God, afterlife. Other family members with mental illness or substance abuse/addiction issues: Father, recovering alcoholic Mom, anger, depression, and anxiety Sister, depression Legal: None 12/09/2023 Major depressive disorder, recurrent, mild (ICD-10 - F33.0) OCD and Intrusive Thoughts - Assessment: Kojo reports experiencing anxiety primarily stemming from OCD and intrusive thoughts, which are less frequent but still present. She is currently on sertraline 100 mg and clonazepam 0.5 mg, which she finds beneficial and has no plans to discontinue. - Plan: - Continue current medication regimen of sertraline 100 mg and clonazepam 0.5 mg. - Monitor the frequency and intensity of intrusive thoughts and OCD symptoms in subsequent sessions. Anxiety Management - Assessment: Kojo expresses ongoing anxiety related to various life stressors including work and family health concerns. She scores her anxiety as 3 out of 10, indicating moderate levels that fluctuate based on external factors. Kojo mentions feeling nervous, anxious, or on edge more than half the days. - Plan: - Introduce and explore the DARE method, focusing on techniques such as defusing, allowing, running toward, and engaging with anxiety. - Encourage Kojo to read or listen to the DARE book to further her understanding and application of these techniques. - Consider integrating cognitive behavioral therapy (CBT) and mindfulness practices in future sessions to manage anxiety. - Introduce and practice the tapping technique (Emotional Glady Technique) as an additional coping strategy. Family Dynamics and Support - Assessment: Kojo discusses concerns about her parents' health and the care of her elderly grandmother, contributing to her stress and anxiety levels. Her parents are in their early 70s and experiencing health issues. Her 91-year-old blind grandmother recently moved to assisted living. - Plan: - Encourage open communication with family members regarding health and future planning. - Suggest discussing plans for elder care and end-of-life preferences to reduce uncertainty and anxiety. - Provide support in navigating these family dynamics and reinforce the importance of self-care amidst family caregiving responsibilities. Marital and Social Support - Assessment: Kojo mentions that her 's behavior and lack of understanding regarding her anxiety contribute to her stress, although he does not discourage her from taking medication. There are issues with shared household responsibilities and differing views on managing their child's behavior. - Plan: - Recommend couples counseling to address communication issues and improve mutual understanding and support regarding mental health challenges. - Encourage Kojo to set boundaries regarding complaint-sharing and to implement transition steps to manage stress post-work. - Suggest establishing a structured complaint time or worry time to limit the impact of negative discussions on their relationship. 09/29/2023 Obsessive-compu lsive disorder, unspecified (ICD-10 - F42.9) cont sertraline 150mg qhs start therapy 11/10/2023 Major depressive disorder, recurrent, mild (ICD-10 - F33.0) stop bupropion xl 150mg qam; monitor mood cont therapy overall doing better. she would like to stop wellbutrin to see if sx manageable with less medications, review pros/cons, discontinuat ion. started counseling, cont f/u in 6 wks, earlier if concerns 01/25/2024 Generalized anxiety disorder (ICD-10 - F41.1) Assessment and Plan: 1. ADHD - notes vyvanse is beneficial but expresses concerns with continued concentration deficits. Adderall more effect in past but not tolerable. - hesitancy previously for vyvanse to worsen anxiety and/or OCD, but does not appear to have made a difference. Plan: - increase vyvanse to 60 mg qam, (note prefers brand name) - monitor for activation worsening anxiety and/or OCD symptoms 2. depression - stable, some days down mood, lack of motivation, but manageable Plan: - Continue sertraline 150 mg daily - Continue bupropion xl 150 mg daily 3. anxiety/OCD - Patient reports anxiety and OCD symptoms as mininmal, manageable and better than before Plan: - continue medications as above 4. Insomnia - Patient reports good sleep with trazodone, has been taking it for almost 10 years Plan: - continue trazodone 50 mg at bedtime Follow up in 2 months, sooner if concens arise 09/24/2023 Attention-defic it hyperactivity disorder, combined type (ICD-10 - F90.2) Electronic Prior Authorization was requested for Vyvanse 50 MG Capsule. Provider can order medication once approval received. 12/03/2023 Major depressive disorder, recurrent, mild (ICD-10 - F33.0) 08/30/2023 Obsessive-compu lsive disorder, unspecified (ICD-10 - F42.9) cont sertraline 150mg qhs 08/30/2023 Generalized anxiety disorder (ICD-10 - F41.1) as aboverefer to therapy 01/25/2024 Obsessive-compu lsive disorder, unspecified (ICD-10 - F42.9) Assessment and Plan: 1. ADHD - notes vyvanse is beneficial but expresses concerns with continued concentration deficits. Adderall more effect in past but not tolerable. - hesitancy previously for vyvanse to worsen anxiety and/or OCD, but does not appear to have made a difference. Plan: - increase vyvanse to 60 mg qam, (note prefers brand name) - monitor for activation worsening anxiety and/or OCD symptoms 2. depression - stable, some days down mood, lack of motivation, but manageable Plan: - Continue sertraline 150 mg daily - Continue bupropion xl 150 mg daily 3. anxiety/OCD - Patient reports anxiety and OCD symptoms as mininmal, manageable and better than before Plan: - continue medications as above 4. Insomnia - Patient reports good sleep with trazodone, has been taking it for almost 10 years Plan: - continue trazodone 50 mg at bedtime Follow up in 2 months, sooner if concens arise 12/09/2023 Obsessive-compu lsive disorder, unspecified (ICD-10 - F42.9) OCD and Intrusive Thoughts - Assessment: Kojo reports experiencing anxiety primarily stemming from OCD and intrusive thoughts, which are less frequent but still present. She is currently on sertraline 100 mg and clonazepam 0.5 mg, which she finds beneficial and has no plans to discontinue. - Plan: - Continue current medication regimen of sertraline 100 mg and clonazepam 0.5 mg. - Monitor the frequency and intensity of intrusive thoughts and OCD symptoms in subsequent sessions. Anxiety Management - Assessment: Kojo expresses ongoing anxiety related to various life stressors including work and family health concerns. She scores her anxiety as 3 out of 10, indicating moderate levels that fluctuate based on external factors. Kojo mentions feeling nervous, anxious, or on edge more than half the days. - Plan: - Introduce and explore the DARE method, focusing on techniques such as defusing, allowing, running toward, and engaging with anxiety. - Encourage Kojo to read or listen to the DARE book to further her understanding and application of these techniques. - Consider integrating cognitive behavioral therapy (CBT) and mindfulness practices in future sessions to manage anxiety. - Introduce and practice the tapping technique (Emotional Glady Technique) as an additional coping strategy. Family Dynamics and Support - Assessment: Kojo discusses concerns about her parents' health and the care of her elderly grandmother, contributing to her stress and anxiety levels. Her parents are in their early 70s and experiencing health issues. Her 91-year-old blind grandmother recently moved to assisted living. - Plan: - Encourage open communication with family members regarding health and future planning. - Suggest discussing plans for elder care and end-of-life preferences to reduce uncertainty and anxiety. - Provide support in navigating these family dynamics and reinforce the importance of self-care amidst family caregiving responsibilities. Marital and Social Support - Assessment: Kojo mentions that her 's behavior and lack of understanding regarding her anxiety contribute to her stress, although he does not discourage her from taking medication. There are issues with shared household responsibilities and differing views on managing their child's behavior. - Plan: - Recommend couples counseling to address communication issues and improve mutual understanding and support regarding mental health challenges. - Encourage Kojo to set boundaries regarding complaint-sharing and to implement transition steps to manage stress post-work. - Suggest establishing a structured complaint time or worry time to limit the impact of negative discussions on their relationship. 11/10/2023 Obsessive-compu lsive disorder, unspecified (ICD-10 - F42.9) cont sertraline 150mg qhs cont therapy 09/29/2023 Generalized anxiety disorder (ICD-10 - F41.1) as abovestart therapy 10/06/2023 Generalized anxiety disorder (ICD-10 - F41.1) Psychosocial Assessment Presenting Problem I am having intrusive thoughts that won't stop . Pt stated she recalls OCD symptoms starting in middle school (possibly before). She would need to look at the clock at certain times to prevent her from dying. Her parents did not believe in getting her help for either OCD or ADHD. She kept her intrusive thoughts private until last year as she thought it was just anxiety getting worse. Everything got really bad when I had depression . Family Origin (/children ): Kojo was born and raised in [place]. She has an older sister (4.5 years) that lives in [place]. Parents are (pt was 15 years old when they ). Mom is remarried. Dad was remarried but in 2014. Childhood Family Dynamic: Pt and her of 5 years have a 4 year old daughter. They do not plan to have any more children. Trauma/PTSD: Dad was an alcoholic, a closet drinker. He was angry, not physically violent but a bully and annoying. Mom was hypercritical. Education and Occupation: Bachelor's Degree in [email or web address] from [employer]. Then got her associates in [employer], [employer]. 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 : None Support System: and co-workers are supportive and helpful. Has a long time friend, a group of 10 internet friends, and some friends from . Sister is identified as helpful and supportive. . Drug/ETOH use/Pattern of use/treatment? My and I drank too much before we had our daughter. It was never an issue. I don't drink much anymore . Medical: None Spirituality: Pt was raised attending a Anglican Tao[employer]. She does not believe in organized episcopalian but hopeful there is a God, afterlife. Other family members with mental illness or substance abuse/addiction issues: Father, recovering alcoholic Mom, anger, depression, and anxiety Sister, depression Legal: None 09/29/2023 Primary insomnia (ICD-10 - F51.01) cont trazodone 50mg qhs PRN insomniapractice good sleep hygiene 12/09/2023 Generalized anxiety disorder (ICD-10 - F41.1) OCD and Intrusive Thoughts - Assessment: Kojo reports experiencing anxiety primarily stemming from OCD and intrusive thoughts, which are less frequent but still present. She is currently on sertraline 100 mg and clonazepam 0.5 mg, which she finds beneficial and has no plans to discontinue. - Plan: - Continue current medication regimen of sertraline 100 mg and clonazepam 0.5 mg. - Monitor the frequency and intensity of intrusive thoughts and OCD symptoms in subsequent sessions. Anxiety Management - Assessment: Kojo expresses ongoing anxiety related to various life stressors including work and family health concerns. She scores her anxiety as 3 out of 10, indicating moderate levels that fluctuate based on external factors. Kojo mentions feeling nervous, anxious, or on edge more than half the days. - Plan: - Introduce and explore the DARE method, focusing on techniques such as defusing, allowing, running toward, and engaging with anxiety. - Encourage Kojo to read or listen to the DARE book to further her understanding and application of these techniques. - Consider integrating cognitive behavioral therapy (CBT) and mindfulness practices in future sessions to manage anxiety. - Introduce and practice the tapping technique (Emotional Glady Technique) as an additional coping strategy. Family Dynamics and Support - Assessment: Kojo discusses concerns about her parents' health and the care of her elderly grandmother, contributing to her stress and anxiety levels. Her parents are in their early 70s and experiencing health issues. Her 91-year-old blind grandmother recently moved to assisted living. - Plan: - Encourage open communication with family members regarding health and future planning. - Suggest discussing plans for elder care and end-of-life preferences to reduce uncertainty and anxiety. - Provide support in navigating these family dynamics and reinforce the importance of self-care amidst family caregiving responsibilities. Marital and Social Support - Assessment: Kojo mentions that her 's behavior and lack of understanding regarding her anxiety contribute to her stress, although he does not discourage her from taking medication. There are issues with shared household responsibilities and differing views on managing their child's behavior. - Plan: - Recommend couples counseling to address communication issues and improve mutual understanding and support regarding mental health challenges. - Encourage Kojo to set boundaries regarding complaint-sharing and to implement transition steps to manage stress post-work. - Suggest establishing a structured complaint time or worry time to limit the impact of negative discussions on their relationship. 11/10/2023 Generalized anxiety disorder (ICD-10 - F41.1) as abovecont therapy 01/25/2024 Primary insomnia (ICD-10 - F51.01) Assessment and Plan: 1. ADHD - notes vyvanse is beneficial but expresses concerns with continued concentration deficits. Adderall more effect in past but not tolerable. - hesitancy previously for vyvanse to worsen anxiety and/or OCD, but does not appear to have made a difference. Plan: - increase vyvanse to 60 mg qam, (note prefers brand name) - monitor for activation worsening anxiety and/or OCD symptoms 2. depression - stable, some days down mood, lack of motivation, but manageable Plan: - Continue sertraline 150 mg daily - Continue bupropion xl 150 mg daily 3. anxiety/OCD - Patient reports anxiety and OCD symptoms as mininmal, manageable and better than before Plan: - continue medications as above 4. Insomnia - Patient reports good sleep with trazodone, has been taking it for almost 10 years Plan: - continue trazodone 50 mg at bedtime Follow up in 2 months, sooner if concens arise 08/30/2023 Primary insomnia (ICD-10 - F51.01) cont trazodone 50mg qhs PRN insomniapractice good sleep hygiene 11/10/2023 Primary insomnia (ICD-10 - F51.01) cont trazodone 50mg qhs PRN insomniapractice good sleep hygiene 08/30/2023 Other Plan Of Treatment Next Appt Details Provider Name:Zoe berumen, 03/27/2024 08:30:00 AM, [address], [facility] [address], [place], [address], Insurance Providers Payer Name Payer Address Payer Phone Subscriber Number Group Number Insured Name Patient Relationship to Insured Coverage Start Date Coverage End Date [facility] Ppo [address] [place] [address] [id number] KOJO MARTINEZ Self - patient is the insured Medical (General) History Medical History History ICD Code Problems: Attention deficit hyperactivit y disorder, combined type Generalized anxiety disorder Mild recurrent major depression Obsessive-compulsive disorder Primary insomnia , Past Psychiatric History: An xiety Disorder,Panic Disorder,Major Depressive Episode abdominal aortic aneurysm: No atrial fibrillation: No chronic fatigue syndrome: No essential tremor: No hyperlipidemia: No hypertension: No Parkinson's disease: No restless leg syndrome: No stroke: No subdural hematoma: No type 1 diabetes mellitus: No type 2 diabetes mellitus: No vitamin B12 deficiency: No vitamin D deficiency: Yes
--- OUTSIDE RECORDS SUMMARY | 2024-02-19 19:33 | XMS_ITS ---
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 Name Role Phone Zoe Kinney Unavailable [phone] Results Component Value Reference Range Notes UDT Reviewed date:01/25/2024 10:54:37 PM Interpretation: Performing Lab: Notes/Report: 0 THC n 0 - 50 ng/ml Cocaine n 0 - 300 ng/ml Amphetamine p 0 - 1000 ng/ml Buprenorphine (BUP) n 0 - 10 ng/ml Secobarbital (Bar) n 0 - 300 ng/ml Oxazepam (BZO) n 0 - 300 ng/ml 7-ehdybrygbn-1,2-jfkzfvnn-3,3-diphenylpyrrolidine (JUDD P) n 0 - 300 ng/ml Methamphetamine (MET) n 0 - 1000 ng/ml Methylenedioxymethamphetamine (MDMA) n 0 - 500 ng/ml Morphine (MOP 300/[id number]) n 0 - 300 ng/ml Methadone (MTD) n 0 - 300 ng/ml Phencyclidine (PCP) n 0 - 25 ng/ml Propoxyphene (PPX) n 0 - 300 ng/ml Nortriptyline (TCA) n 0 - 1000 ng/ml Oxycodone n 0 - 300 ng/ml REASON FOR VISIT follow up depression, anxiety, OCD, ADHD Medications Medication SIG (Take, Route, Frequency, Duration) Notes Start Date End Date Status buPROPion HCl ER (XL) 150 MG 1 tablet in the morning Oral Once a day for 90 days Active Sertraline HCl 100 MG 1.5 tablet Oral On ce a day for 90 days 05/27/2023 Active traZODone HCl 50 MG 1 tablet at bedtime as needed Oral Once a day for 90 days 05/27/2023 Active Vyvanse 60 MG 1 capsule in the morning Oral Once a day for 30 days 01/27/2024 Active Lisdexamfetamine Dimesylate 50 MG 1 capsule in the morning Orally Once a day for 30 days 01/06/2024 Active Tretinoin 0.05 % External 05/27/2023 Ac tive Multivitamin Adults Oral 05/27/2023 Active Benzonatate 100 MG Oral 05/27/2023 Active [...] past year? Monthly or less (1 point) Vital Signs Blood pressure systolic 114 mm Hg 01/25/20 24 Blood pressure diastolic 75 mm Hg 024 Heart Rate 105 /min 01/25/2024 Height 68.00 in 01/25/2024 Weight 149 lbs 01/25/2024 BMI 22.65 kg/m2 01/25/2024 Height-cm 172.72 cm 01/25/2024 Weight-kg 67.59 kg 01/25/2024 Encounters Encounter Location Date Provider Diagnosis [facility] [employer] [facility] [address] [address] 01/25/2024 Zoe Kinney Attention-deficit hyperactivity disorder, combined type F90.2 ; Major depressive disorder, recurrent, mild F33.0 ; Generalized anxiety disorder F41.1 ; Obsessive-compulsive disorder, unspecified F42.9 and Primary insomnia F51.01 Assessments Encounter Date Diagnosis (ICD Code) Assessment Notes Treatment Notes Treatment Clinical Notes Section Notes 01/25/2024 Attention-deficit hyperactivity disorder, combined type (ICD-10 - [...] in 2 months, sooner if concens arise 01/25/2024 Major depressive disorder, recurrent, mild (ICD-10 [...] in 2 months, sooner if concens arise 01/25/2024 Generalized anxiety disorder (ICD-10 - F41.1) [...] in 2 months, sooner if concens arise 01/25/2024 Obsessive-compuls marshall disorder, unspecified (ICD-10 - F42.9) Assessment and [...] in 2 months, sooner if concens arise 01/25/2024 Primary insomnia (ICD-10 - F51.01) Assessment [...] in 2 months, sooner if concens arise Plan Of Treatment Medication Medication Name Sig Start Date Stop Date Notes buPROPion HCl ER (XL) 150 MG 1 tablet in the morning Oral Once a day for 90 days Sertraline HCl 100 MG 1.5 tablet Oral On ce a day for 90 days 05/27/2023 traZODone HCl 50 MG 1 tablet at bedtime as needed Oral Once a day for 90 days 05/27/2023 Vyvanse 60 MG 1 capsule in the mor shameka Oral Once a day for 30 days 01/27/2024 Next Appt Details Follow Up: 2 Months, Reason: Provider Name:Zoe berumen, 03/27/2024 08:30:00 AM, [address], [facility] [address], [place], [address], Progress Notes * BELKYS MARTINEZ SDOB:1985 (38 yo F)Acc No.[id number]:01/25/2024 Patient:?BELKYS MARTINEZ Provider:?Zoe Kinney :1985???Age:38 Y???Sex:Female D ate:01/25/2024 Address:[address] [facility] Subjective: * Chief Complaints: * ???follow up depression, anx iety, OCD, ADHD * HPI: ???General Follow Up:?38 y/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 last visit stopped bupropion xl 150 mg, but in between visits restarted it.?describes no change in mood, some days down, lack of motivation. Some improvement in anxiety, mild and situational, manageable. Reports that her sleep is satisfactory with the use of trazodone. appetite good. Denies SI, symptoms of rose, psychosis, panic attacks. OCD symptoms as stable and not problematic, noting that they are always there but can be brushed aside more easily now. most recent vyvanse refill was sent for generic, which she feels is not as effective as brand name and wishes to stick with brand name for now on. She does feel vyvanse is not as effective as other stimulant she's tried (adderall) but she did not tolerate it well. states option to increase was explored prior but hesitancy with potential to worsen anxiety and?OCD symptoms. with anxiety and OCD overall stble and manageable, now most prevalent concerns is concentration deficits. Agreed to cautiously increase dose. ???History of Presenting Problem:?note: all previous encounters with a different provider, see prior notes for more details 12/03/23: message from patient to provider:?I went about 10 days without taking it (wellbutrin xl) and I was absolutely miserable. I started to take it again and instantly felt better after a few days. I was very, very kearney and felt like I was glued to the couch or bed. ?- restarted bupropion xl 150 mg qam 11/10/23: no med change last visit, denies side effect concerns.?I'm feeling pretty good. Denies depression, denies SI. Anxiety is not terrible, is manageable. The obsessive thoughts have improved too, seems to come and go, but also manageable. Sleeping ok. Not irritable. Appetite ok. finds vyvanse helpful.? saw Viri last month for therapy intake, went good ?-?stop bupropion xl 150mg qam;?cont trazodone 50mg qhs PRN insomnia,?cont sertraline 150mg qhs;?cont vyvanse 50mg qam 09/29/23: decreased wellbutrin, did not have any issues with that. Thinks it is better, notices that the vyvanse maybe working better.? depression still mild maybe a little better, denies SI. anxiety in general still better and manageable, but the OCD type fear thoughts are still present. mostly just have a thought and goes away quickly, then back later. Though last week I skipped medicine several times as had covid last week, and worry about that too. Sleeping good. Appetite no concerns. Not irritable. Jaw clenching not as bad, have if too much caffeine.? ?-?cont bupropion xl 150mg qam,?cont vyvanse 50mg qam,?cont trazodone 50mg qhs PRN insomnia;?cont sertraline 150mg qhs 08/30/23: no med changes last visit, denies side effects.?things are still good. depression mild and intermittent, denies SI. anxiety some but manageable and still better than before. OCD thoughts maybe a little worse, same topics, something going to happen to me, daughter left alone, or about parents.?Maybe due to?some more stressors the last few months with work and health stuff. Still not like it was before. Sleeping good. Appetite fine. Denies concerns for irritable/kearney with stimulant. less jaw clenching with effort to decrease caffeine. ADHD much better managed,? satisfied with where that is. note: some increase in OCD type thoughts.?discuss options, increase sertraline potentially decrease stimulant if making more anxious (she does not think it is- but more stressors), or?wait for therapy. She would actually like to try decrease bupropion instead and see, review possible discontinuation effects ?- decrease bupropion xl to 150mg qam, cont vyvanse 50mg qam,?cont sertraline 150mg qhs,?cont trazodone 50mg qhs PRN insomnia intake info substance use hx: unremarkable other than 2 coffee/am therapy: saw chidi once, did not continue, starting with Viri OCD hx: Thoughts usually about daughter, falling with her, or getting in a car accident etc. anything bad happening to her or me. What would happen to her if me and my , what would happen if I when no one else was home with her. Spend a lot of the day on this, since she was born. Before she was born would have thoughts, but would be like what if my foot came off the break, dwell on these. Or worry about safety instead. Hadn't really told providers about intrusive/obsessive thoughts. having rage, irritable, anxious since child ADHD hx: Onset:?childhood ADHD inattention?poor ability to give close attention to details;?has difficulty sustaining attention in tasks;?makes careless mistakes at work;?does not listen when spoken to directly;?fails to finish work;?has difficulty organizing tasks and activities;?reluctant to engage in tasks that require sustained mental effort;?loses things necessary for tasks or activities;?easily distracted by extraneous stimuli ADHD Associated Symptoms Hyperactivity:?Often fidgets with or taps hands or feet, or squirms in seat.;?Often runs about or climbs in situations where it is not appropriate (adolescents or adults may be limited to feeling restless);?Is often on the go acting as if driven by a motor .;?excessive talking?(sometimes);?blurts out answers before questions have been completed;?Often interrupts or intrudes on others (e.g., butts into conversations or games) Context:?lack of productivity at work;?increased anxiety;?increased depression;?unnecessary arguments;?ongoing cognitive distortions ADHD testing: auditory global and primary test scales invalid. Of remaining scales significant impairment. Consider combined presentation per testing and self rating. Might consider retest. Could also consider neuropsych. My opinion is likely severe adhd causing invalid results. Do not think malingering. ???Depression Screening:?LUIS E-7 (2018 Edition)?Feeling nervous, anxious, or on edge?Several days,?Not being able to stop or control worrying?Several days,?Worrying too much about different things?Several days,?Trouble relaxing?Not at all,?Being so restless that it is hard to sit still?Not at all,?Becoming easily annoyed or irritable?More than half the days,?Feeling afraid as if something awful might happen?Not at all,?Total LUIS E-7 Score?5,?If you checked any problems, how difficult have they made it for you to do your work, take care of things at home, or get along with other people??Somewhat difficult,?Interpretation of Total?(5 to 9) Mild.?Depression screening:?PHQ-9?Little interest or pleasure in doing things?Not at all,?Feeling down, depressed, or hopeless?Several days,?Trouble falling or staying asleep, or sleeping too much?Several days,?Feeling tired or having little energy?Several days,?Poor appetite or overeating?Several days,?Feeling bad about yourself or that you are a failure, or have let yourself or your family down?Not at all,?Trouble concentrating on things, such as reading the newspaper or watching television?Several days,?Moving or speaking so slowly that other people could have noticed; or the opposite, being so fidgety or restless that you have been moving around a lot more than usual?Not at all,?Thoughts that you would be better off or of hurting yourself in some way?Not at all,?Total Score 5,?Interpretation?Mild Depression.?Intervention?Depression Screening Findings?Positve,?Follow-Up for Depression?Mental health treatment assessment, Patient follow-up to return when and if necessary,?Suicide Risk Assessment Performed? ,?Additional Evaluation for Depression?Psychiatric interview and evaluation,?Name of the standardized tool used for adult depression screening:?Patient Health Questionnaire (PHQ-9).?Gilchrist-Suicide Severity Rating Scale:?Suicide Risk (CSRS-screener)?in the past one month Have you wished you were or wished you could go to sleep and not wake up??No,?in the past one month Have you actually had any thoughts of killing yourself??No,?Have you ever done anything, started to do anything, or prepared to do anything to end your life??No.?Past Psychiatric Hospitalizations:?Previous psychiatric hospitalizations?Previous Psychiatric Hospitalization?No.? * ROS:?General / Constitutional:?Patient denies?change in appetite, fatigue, headache, lightheadedness, sleep disturbance, weight gain, weight loss.?Cardiovascular:?Patient denies?chest pain, dizziness, palpitations, swelling in hands / feet.?Gastrointestinal:?Patient denies?abdominal pain, change in bowel habits, nausea, vomiting, difficulty swallowing.?Neurologic:?Patient denies?balance difficulty, confusion, dizziness, fainting, headache, irritability, tremor, tic, seizures.?Psychiatric:?Patient denies?suicidal thoughts, psychosis, auditory / visual hallucinations, delusions, rose.?Comments?See HPI for more details.? * Medical History:? * Surgical History:?Denies Pas t Surgical History * Hospitalization/Major Diagno stic Procedure:?Denies Past Hospitalization * Family History:?Father: Shirley r Depressive Episode.?Maternal Aunt: None.?Maternal Uncle: None.?Paternal Aunt: None.?Paternal Uncle: None.?Mother: Anxiety Disorder.?Paternal Grandfather: None.?Maternal Grandfather: None.?Maternal Grandmother: None.?Brother: None.?Sister: Anxiety Disorder,Major Depressive Episode.?Son: None.?Daughter: None.?1 sister(s) . .? * Social History:?Tobacco Use:?Tobacco Control (Standard)?Tobacco use:?Nonsmoker.?Migrated Social History:?Migrated Social History: Alcohol Intake: None 02/27/2022,Tobacco Years: Never smoker 01/27/2022. ???Drug/Alcohol:?Drugs?Have you used drugs other than those for medical reasons in the past 12 months??No.?AUDIT-C (Standard)?Did you have a drink containing alcohol in the past year??Yes,?How often did you have six or more drinks on one occasion in the past year??Never (0 point),?How many drinks did you have on a typical day when you were drinking in the past year? 1 or 2 drinks (0 point),?How often did you have a drink containing alcohol in the past year??Monthly or less (1 point).?Miscellaneous:?Advance Care Planning?Are you your own decision-maker?Yes,?Do you have Power of Food Service Coordinator for Health or Medical??No.?Social History:?Household?Marital Status:?,?Number of Adults in household:?2,?Number of Children in Household:?1,?Level of Education:?Finished College.? * Medications:?TakingBenzonata te 100 MG Capsule Oral Tretinoin 0.05 % Cream External Multivitamin Adults Tablet Oral Sertraline HCl 100 MG Tablet 1.5 tablet Oral Once a day traZODone HCl 50 MG Tablet 1 tablet at bedtime as needed Oral Once a day Vyvanse 50 MG Capsule 1 capsule in the morning Oral Once a day buPROPion HCl ER (XL) 150 MG Tablet Extended Release 24 Hour 1 tablet in the morning Oral Once a day Lisdexamfetamine Dimesylate 50 MG Capsule 1 capsule in the morning Orally Once a day Medication List reviewed and reconciled with the patientTaking Benzonatate 100 MG Capsule Oral Taking Tretinoin 0.05 % Cream External Taking Multivitamin Adults Tablet Oral Taking Sertraline HCl 100 MG Tablet 1.5 tablet Oral Once a day Taking traZODone HCl 50 MG Tablet 1 tablet at bedtime as needed Oral Once a day Taking Vyvanse 50 MG Capsule 1 capsule in the morning Oral Once a day Taking buPROPion HCl ER (XL) 150 MG Tablet Extended Release 24 Hour 1 tablet in the morning Oral Once a day Taking Lisdexamfetamine Dimesylate 50 MG Capsule 1 capsule in the morning Orally Once a day Medication List reviewed and reconciled with the patient Objective: * Vitals:?BP:114/75mm Hg, HR:1 05/min, Wt:149lbs, Wt-k.59 kg, Ht: 68.00 in, Ht-cm: 172.72 cm, BMI:22.65Index, Body Surface Area: 1.8. * Examination: ???General Examination: ?General appearance:?alert, pleasant, well-nourished and in no acute distress.?Psychiatry: ?Appearance:?well-groomed, well-nourished, appears stated age.?Abnormal body movements:?none.?Affect / mood:?appropriate, full range.?Attention:?good, normal in conversation.?Attitude:?cooperative, open-minded with collaborative approach.?Homicidal ideation:?none.?Suicidal ideation:?none.?Memory status:?no impairment noted.?Delusions:?no.?Hallucinations:?no.?Insight:?good.?Intellectual functioning:?no impairment noted.?Judgement:?good.?Orientation:?awake, alert and oriented x 3.?Speech / language:?appropriate pitch/modulation, clear and coherent, normal rate, volume, and articulation (RVR), proper grammar used.?Thought content:?appropriate.?Thought process:?intact.? Assessment: * Assessment: 1.?Attention-deficit hyperac tivity disorder, combined type - F90.2 (Primary)???2.?Major depressive disorder, recurrent, mild - F33.0???3.?Generalized anxiety disorder - F41.1???4.?Obsessive-compulsive disorder, unspecified - F42.9 ??5.?Primary insomnia - F51.01??? Assessment and Plan: 1. ADHD - notes vyvanse is beneficial but expresses concerns with continued concentration deficits. Adderall more effect in past but not tolerable.? - hesitancy previously for vyvanse to worsen anxiety and/or OCD, but does not appear to have made a difference.? Plan: ?- increase vyvanse to 60 mg qam, (note prefers brand name) ?- monitor for activation worsening anxiety and/or OCD symptoms 2. depression - stable, some days down mood, lack of motivation, but manageable Plan: ? ?- Continue sertraline 150 mg daily ? ?- Continue bupropion xl 150 mg daily 3. anxiety/OCD ?- Patient reports anxiety and OCD symptoms as mininmal, manageable and better than before ? ?Plan: - continue medications as above 4. Insomnia ? ?- Patient reports good sleep with trazodone, has been taking it for almost 10 years ? ?Plan: ? ? ?- continue trazodone 50 mg at bedtime Follow up in 2 months, sooner if concens arise Plan: * Treatment: 2.?Major depressive disorder , recurrent, mild? Refill buPROPion HCl ER (XL) Tablet Extended Release 24 Hour, 150 MG, 1 tablet in the morning, Oral, Once a day, 90 days, 90, Refills 0.?? 3.?Obsessive-compulsive diso rder, unspecified? Refill Sertraline HCl Tablet, 100 MG, 1.5 tablet, Oral, Once a day, 90 days, 135, Refills 0.?? 4.?Primary insomnia? Refill traZODone HCl Tablet, 50 MG, 1 tablet at bedtime as needed, Oral, Once a day, 90 days, 90, Refills 0.?? * Labs:? * ?Lab: UDT (Collection Da te & Time - 01/25/2024) ? Value Reference Range ?THC n 0 - 50 ng/ml * ?Cocaine n 0 - 300 ng/ml * ?Amphetamine p 0 - 1000 ng /ml * ?Buprenorphine (BUP) n 0 - 10 ng/ml * ?Secobarbital (Bar) n 0 - 300 ng/ml * ?Oxazepam (BZO) n 0 - 300 ng/ml * ?4-thsriftdhy-3,3-iqtztsve-4,3-diphenylpyrrolidine (EDDP) n 0 - 300 ng/ml * ?Methamphetamine (MET) n 0 - 1000 ng/ml * ?Methylenedioxymethamphetamine (MDMA) n 0 - 500 ng/ml * ?Morphine (MOP 300/[id number]) n 0 - 300 ng/ml * ?Methadone (MTD) n 0 - 300 ng/ml * ?Phencyclidine (PCP) n 0 - 25 ng/ml * ?Propoxyphene (PPX) n 0 - 300 ng/ml * ?Nortriptyline (TCA) n 0 - 1000 ng/ml * ?Oxycodone n 0 - 300 ng/ml * Procedure Codes:?24828 BEHAV ASSMT W/SCORE & DOCD/STAND [id number] VISIT COMPLEXITY INHERENT TO ONGOING CARE RELATED TO A PATIENT'S SINGLE, SERIOUS CONDITION OR A COMPLEX [id number] DRUG TST PRSMV READ INSTRMNT ASSTD DIR OPT OBS * Follow Up:?2 Months * Billing Information: * Visit Code:? 82068 OFFICE OUTPATIENT VISIT 25 MINUTES DETAILED HISTORY AND EXAM/MODERATE MEDICAL DECISION MAKING. * Procedure Codes:? 72161 BEHAV ASSMT W/SCORE & DOCD/STAND INSTRUMENT. G2211 VISIT COMPLEXITY INHERENT TO ONGOING CARE RELATED TO A PATIENT'S SINGLE, SERIOUS CONDITION OR A COMPLEX CONDITION. 97033 DRUG TST PRSMV READ INSTRMNT ASSTD DIR OPT OBS. * [employer] Electronically co-signed by Emmanuel Arnold MD on 02/02/2024 at 04:07 PM [employer] Sign off status: Completed Addendum: * ? true * Provider:Yanci Kinney Date:? 024 Generated for Talon pink/Rolando/eTransmitting on:?02/19/2024 07:32 PM [employer] History and Physical Notes * HPI (History of Present Illness) Category Sub-Category Detail Notes Category Not es Past Psychiatric Hospitalizations Previous psychiatric hospitalizations Previous Psychiatric Hospitalization: No Depression screening PHQ-9 Little inte rest or pleasure in doing things: Not at all Feeling down, depressed, or hopeless: Se veral days Trouble falling or staying asleep, or sl eeping too much: Several days Feeling tired or having little energy: S everal days Poor appetite or overeating: Several day s Feeling bad about yourself o r that you are a failure, or have let yourself or your family down: Not at all Trouble concentrating on thi ngs, such as reading the newspaper or watching television: Several days Moving or speaking so slowly that other people could have noticed; or the opposite, being so fidgety or restless that you have been moving around a lot more than usual: Not at all Thoughts that you would be b almaz off or of hurting yourself in some way: Not at all Total Score: 5 Interpretation: Mild Depression Intervention Depression Screening Findings: P ositve Follow-Up for Depression: [facility] treatment assessment, Patient follow-up to return when and if necessary Suicide Risk Assessment Performed: Additional Evaluation for De pression: Psychiatric interview and evaluation Name of the standardized too l used for adult depression screening:: Patient Health Questionnaire (PHQ-9) Depression Screening LUIS E-7 (2018 Edition) Feelin g nervous, anxious, or on edge: Several days Not being able to stop or control worryi ng: Several days Worrying too much about different things : Several days Trouble relaxing: Not at all Being so restless that it is hard to sit still: Not at all Becoming easily annoyed or irritable: Mo re than half the days Feeling afraid as if something awful karen ht happen: Not at all Total LUIS E-7 Score: 5 If you checked any problems, how difficult have they made it for you to do your work, take care of things at home, or get along with other people?: Somewhat difficult Interpretation of Total: (5 to 9) Mild Gilchrist-Suicide Severity Rating Scale Suicide Risk (CSRS-screener) in the past one month Have you wished you were or wished you could go to sleep and not wake up?: No in the past one month Have y ou actually had any thoughts of killing yourself?: No ?Have you ever done anything , started to do anything, or prepared to do anything to end your life?: No Examination Category Sub-Category Detail Notes Category Not es Psychiatry Appearance: well-groomed, we ll-nourished, appears stated age Attitude: cooperative, open-mi nded with collaborative approach Abnormal body movements: none Attention: good, normal in conv ersation Orientation: awake, alert and kaycee ented x 3 Affect / mood: appropriate, full ra nge Speech / language: appropriate pitch/mo dulation, clear and coherent, normal rate, volume, and articulation (RVR), proper grammar used Insight: good Judgement: good Thought process: intact Thought content: appropriate Suicidal ideation: none Homicidal ideation: none Intellectual functioning: no impairment noted Memory status: no impairment noted Delusions: no Hallucinations: no General Examination General appearance: alert, p leasant, well-nourished and in no acute distress
== END 2024-02-12 12:48 | disposition home or self-care (01) ==
LOC: ANHLAB 12:49
PROVIDERS: PCP Nurse Practitioner; Visit Provider Obstetrics & Gynecology
DX: N92.1 Excessive and frequent menstruation with irregular cycle (principal)
CPT/HCPCS: 36415; 85014; 85018

== ENCOUNTER 2024-02-18 00:29 | Day surgery (SDC) | payer BC, SELFPAY ==
[2024-02-09 14:30] VITALS: BMI 22.4
--- NOTE | 2024-02-09 14:50 | PC.NURSE ---
Report to the Outpatient Waiting Room, entrance under the green pavilion located off [facility], at time ___6:30AM____ on date ___02/18/24____. Planned Procedure Time: ___8:30AM .? Time changes happen often and if your time is changed the preop area will call you the afternoon before. - You and your visitor will be asked to self-screen and do not enter if you have any COVID symptoms. Please call surgeon if you need to reschedule. - A mask is optional within the hospital at this time. Patients may have clear liquids (water, carbonated beverages, clear teas, apple juice) until 3 hours prior to surgery with a maximum of 20 ounces. - No food from midnight until time of surgery and no smoking. This includes no chewing gum, candy or mints. Take only the following medications with a SIP of water on the morning of surgery: BUPROPRION, SERTRALINE DO NOT STOP ANY OF YOUR OTHER PRESCRIPTION MEDICATIONS PRIOR TO SURGERY EXCEPT THE FOLLOWING Medications to discontinue per physician HOLD ALL VITAMINS/SUPPLEMENTS 3 DAYS PRE-OP PER ANESTHESIA Date to take last dose 02/14/24 Please no make-up, nail lithuanian, hairspray, perfume, deodorant, or body powder the day of surgery.? No jewelry (including any body piercings) or valuables the day of surgery, leave them at home.? Please take a shower or bath the night before, or the morning of, surgery with an antibacterial soap.? Wear comfortable, loose fitting clothing.? Children are encouraged to wear pajamas. - Jewelry must be removed prior to entering the operating room.? Rings and piercings that are not removed may be cut off. - The hospital will not accept responsibility for valuables.? - Please leave all valuables, including medications, at home the day of surgery. If you are going home after surgery, a licensed wheelchair driver must drive you home.? - NO public transportation without another adult if you receive anesthesia. - We recommend that an adult stay with you for 24 hours following discharge. - We also recommend that you do not drive, make important decision, drink alcoholic beverages, or take any drugs that were not prescribed by your health care provider for at least 24 hours after your discharge time. Follow any additional instructions given to you from your surgeon. Telephone instructions given to PATIENT and asked if any additional questions and then verbalized understanding. Patient advised to call surgeon office or pre surgery nurse liaison [phone] if any additional questions.
--- NOTE | 2024-02-17 06:56 | P.HP_ITS ---
H&P: HPI History of Present Illness Date/Time: 02/17/24 06:56 Chief Complaint: excessive bleeding and pelvic pain desires sterilization Narrative: 37-year-old a 1 para 1 admitted for tubal ligation with laparoscopy hysteroscopy dilatation curettage and ablation secondary to excessive heavy bleeding. Risks and benefits of the procedures were reviewed in great detail. She had all questions answered and understands this to be a permanent irreversible procedure she had all questions answered and asked to proceed Review of Systems Review of Systems: All systems reviewed & are unremarkable except as noted in HPI and below PMFSH Past Medical History Medical History Anxiety Insomnia Family History Family History Mother Hypertension Father Heart attack Hypertension Mother Hypertension Social History Social History Social History: Patient works full-time as a [employer]. She is , has one daughter 18 months old (b. 2019) Smoking status: Never smoker Alcohol intake: current Substance use: never Substance use type: does not use Lack of Transportation: No Lack of Food: Never True Current Housing: I Have Housing Concerned About Future Housing: No Difficulty Paying Gas/Electric Bills: No Difficulty Paying for Meds: No Currently Unemployed: No Education: Bachelor's Degree Difficulty w/ Childcare or Family Care: No Living arrangements: with family Additional living arrangements comments: HUSB AND DAUGHTER Occupation/Education: occupation Gender identity (if verbalized by the patient): Female Spiritual care concerns: No Meds Home Medications and Allergies Home Medications ?Medication ?Instructions ?Recorded ?Confirmed ?Type ibuprofen 600 mg tablet 600 mg PO Q6H PRN Cramping #30 tabs 09/25/19 02/09/24 Rx trazodone 50 mg tablet 50 mg PO QHS PRN sleep #90 tabs 06/24/21 02/09/24 Rx multivitamin (Multiple Vitamins 1 tablet PO DAILY 06/05/22 02/09/24 History tablet) sertraline 100 mg tablet 150 mg PO DAILY 06/05/22 02/09/24 History tretinoin 0.05 % topical cream 1 applic topical QHS 06/30/23 02/09/24 History acetaminophen 500 mg tablet 1,000 mg PO Q6H PRN pain 02/09/24 02/09/24 History (Acetaminophen Extra Strength) bupropion HCl 150 mg 24 hr tablet, 150 mg PO DAILY 02/09/24 02/09/24 History extended release lisdexamfetamine 60 mg capsule 60 mg PO DAILY 02/09/24 02/09/24 History (Vyvanse) Allergies Allergy/AdvReac Type Severity Reaction Status Date / Time Sulfa (Sulfonamide Allergy Unknown Unknown Verified 02/09/24 14:22 Antibiotics) Exam Const: General: cooperative, healthy appearing, comfortable and average body habitus Nutritional Appearance: average body habitus Orientation/consciousness: oriented to person, oriented to place and oriented to time HENMT: Head: normal to inspection Resp: Effort & Inspection: normal respiratory effort Cardio: Rate: regular rate Rhythm: regular rhythm Heart sounds: S1 normal heart sound present and S2 normal heart sound present GI: Inspection: normal to inspection Auscultation: normal bowel sounds : External Female Exam: normal external appearance Speculum Exam - Vagina: normal appearance of the vagina Speculum Exam - Cervix: normal appearance of the cervix Bimanual exam- vagina & uterus: uterine shape normal Bimanual Exam- Adnexa, other: normal adnexae Assessment and Plan Assessment and plan (1) Sterilization: Code(s): Z30.2 - Encounter for sterilization Status: Acute (2) Excessive bleeding: Code(s): R58 - Hemorrhage, not elsewhere classified Status: Acute Plan proceed with laparoscopic bilateral tubal ligation /hysteroscopy/ dilatation and curettage/Ramila ablation
[2024-02-18] VITALS (9 sets, daily range): BP systolic 103–124; BP diastolic 60–75; PULSE 63–84; RESP 12–20; TEMP 36.1–36.2; O2SAT 99–100
--- NOTE | 2024-02-18 06:35 | WPDHPUPDATE1 ---
History and Physical Update Update Date/Time: 02/18/24 06:35 History and Physical has been reviewed, including an updated exam of the patient. There are NO changes in the patient's condition. Risks, benefits, and alternatives have been discussed and questions answered. Patient agrees to proceed with procedure.
[2024-02-18] MEDS: ACETAMINOPHEN 500 MG TABLET 1000 MG PO (07:47)
[2024-02-18] MEDS: KETOROLAC 15 MG/ML VIAL (*BKC) IV PUSH (07:48)
--- NOTE | 2024-02-18 08:06 | WPDANESEPPF ---
Anes - Initial Pre Proc Eval Procedure: Operation Date: 02/18/24 08:30 Proposed Procedures p Laparoscopic Bilateral Salpingectomy, - Jaswant Antonio MD s Hysteroscopy Dilation and Curettage, Ramila Endometrial Ablation - Jaswant Antonio MD Date/Time: 02/18/24 08:06 Surgeon: Jaswant Antonio MD Pre Op Diagnosis: desires sterilization, irregular excess bleeding Patient Data Age: 38 Gender: F Height: 1.73 m Weight: 67.1 kg Last Vital Signs Temp 97 F L 02/18/24 07:00 Pulse 77 02/18/24 07:00 Resp 16 02/18/24 07:00 BP 109/60 02/18/24 07:00 Pulse Ox 100 02/18/24 07:00 O2 Del Method Room Air 02/18/24 07:00 Allergies Allergy/AdvReac Type Severity Reaction Status Date / Time Sulfa (Sulfonamide Allergy Unknown Unknown Verified 02/18/24 07:31 Antibiotics) Home Medications ?Medication ?Instructions ?Recorded ?Confirmed ?Type ibuprofen 600 mg tablet 600 mg PO Q6H PRN Cramping #30 tabs 09/25/19 02/09/24 Rx trazodone 50 mg tablet 50 mg PO QHS PRN sleep #90 tabs 06/24/21 02/09/24 Rx multivitamin (Multiple Vitamins 1 tablet PO DAILY 06/05/22 02/18/24 History tablet) sertraline 100 mg tablet 150 mg PO DAILY 06/05/22 02/18/24 History tretinoin 0.05 % topical cream 1 applic topical QHS 06/30/23 02/09/24 History acetaminophen 500 mg tablet 1,000 mg PO Q6H PRN pain 02/09/24 02/09/24 History (Acetaminophen Extra Strength) bupropion HCl 150 mg 24 hr tablet, 150 mg PO DAILY 02/09/24 02/18/24 History extended release lisdexamfetamine 60 mg capsule 60 mg PO DAILY 02/09/24 02/18/24 History (Vyvanse) hydrocodone 5 mg-acetaminophen 325 1 tablet PO Q4H PRN pain #20 tabs 02/18/24 Rx mg tablet Patient hx anesthesia problems: none Family hx anesthesia problems: none Results Review: All pre-operative results and documents have been reviewed as part of the pre-operative evaluation. 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 She is , has one daughter 18 months old (b. 2019) Smoking status: Never smoker Alcohol intake: current Substance use: never Substance use type: does not use Lack of Transportation: No Lack of Food: Never True Current Housing: I Have Housing Concerned About Future Housing: No Difficulty Paying Gas/Electric Bills: No Difficulty Paying for Meds: No Currently Unemployed: No Education: Bachelor's Degree Difficulty w/ Childcare or Family Care: No Living arrangements: with family Additional living arrangements comments: HUSB AND DAUGHTER Occupation/Education: occupation Gender identity (if verbalized by the patient): Female Spiritual care concerns: No Anes - Eval Final PreProcedure Day of Procedure 02/18/24 08:06 Patient weight: normal Heart: regular rate and rhythm Lungs: clear to auscultation Airway: Mallampati scale class II Neurological: alert and oriented Last oral intake: >/= 8 hours ASA classification: II Emergent: no Anesthetic plan: proceed Anesthesia type and monitoring: general ETT and standard monitoring Results Review: All pre-operative results and documents have been reviewed as part of the pre-operative evaluation. Anxiety. Informed Consent: The patient's anesthetic plan and its attendant risks and benefits were discussed with the patient/family/POA. Questions were solicited and answers provided to the satisfaction of the patient/family/POA.
--- NOTE | 2024-02-18 09:13 | SUR.OPER ---
Fluid deficit 170
--- NOTE | 2024-02-18 09:14 | P.OP_ITS ---
Procedure Note - Detailed Date of Procedure 02/18/24 Pre-op Diagnosis desires sterilization, irregular excess bleeding Post-op Diagnosis Same Procedure Performed Laparoscopic bilateral bilateral salpingectomies with hysteroscopy dilatation curettage and Ramila ablation Surgeon Jaswant Antonio MD Anesthesia General Indications This is a 38-year-old multiparous patient who desires permanent sterilization with excessive heavy bleeding Findings Normal-appearing ovaries tubes and uterus. Description of Procedure The patient was prepped draped in the sterile fashion placed in the dorsal lithotomy position. Under excellent general trach anesthesia weighted speculum placed in posterior fornix of vagina. Anterior lip of the cervix grasped with a single-tooth tenaculum. Ramirez's cannula inserted the cervix and attached to the single-tooth to be used later for uterine manipulation. The bladder emptied of clear urine the weighted speculum was removed. An infraumbilical incision made the Veress needle passed in the abdomen. Abdomen filled with CO2 gas [id number]. The 5mm trocar advanced under direct visualization assuring no injury. The patient was then placed in Trendelenburg. 5mm trocar advanced in the suprapubic area and no injury seen. A left lower quadrant incision made the 5mm trocar advanced under direct visualization assuring no injury. Next the left fallopian tube was grasped at its distal portion she really using the LigaSure this was clamped burned and cut until it was a attached to the uterine pace and this was clamped cut burned and removed. In similar fashion on right the fallopian tube was grasped burned cut and dissected away from the ovarian complex until the uterine origin a limon. This was clamped, burned, cut. This tube was then removed through the left lower in cision hemostasis was assured and gas was from the abdomen. The trocars removed and incisions closed with 4-0 Monocryl glue. Attention was turned to hysteroscopy. Uterus sounded 8.5cm. Serial dilatation with fragmented dilators performed followed by passage of the 5mm visualizing hysteroscope. Normal saline was used as visualizing medium. Thick endometrial tissue was seen but no evidence of abnormalities. The uterus was then scraped over the entire 360? until a good grating sound was heard. The instruments withdrawn and the Ramila instrument was placed in the uterus. A burned for 1 20seconds was performed. This was then removed the patient was then awakened after removing the instruments from the vagina. All sponge, needle, instrument counts were correct. There were no immediate complications Estimated Blood Loss 5 Drains No Packing No Pathology Yes (Bilateral fallopian tubes/endometrial curettings) Complications No immediate complications Condition Stable Disposition PACU
[2024-02-18 09:15] LABS: BEDSIDEPREGUCG Negative (Negative)
[2024-02-18] MEDS: LACTATED RINGERS 1,000 ML 30 ML IV CONT ×2 (09:16)
[2024-02-18] MEDS: oxyCODONE HCL (*CRX) 5 MG TAB IR PO (10:24)
--- OUTSIDE RECORDS SUMMARY | 2024-02-25 01:34 | XMS_ITS ---
Author Organization [facility] [employer] [facility] Address [address] [place] [address] Care Team Providers Care Digitizer Name Role Phone Zoe Kinney Unavailable [phone] Medications Medication SIG (Take, Route, Frequency, Duration) Notes Start Date End Date Status Vyvanse 60 MG 1 capsule in the mor shameka Oral Once a day for 30 days 01/27/2024 Active Social History Sex Assigned At : Social History Observation Description Sex Assigned At Female Encounters Encounter Location Date Provider Diagnosis [facility] [employer] [facility] [address] [place] [address] 01/27/2024 Zoe Kinney Attention-deficit hyperactivity disorder, combined [...] AM, [address], [place], [address], Progress Notes * BELKYS MARTINEZ SDOB:1985 (38 yo F)Acc No.[id number]:01/27/2024 Patient:?BELKYS MARTINEZ :1985???Age:38 Y???Sex:Female Address:[address] [place], [address] * Refills? Refill Vyvanse Capsule, 60 MG, Oral, 30, 1 capsule in the morning, Once a day, 30 days, Refills=0 * true * Date:? 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
--- OUTSIDE RECORDS SUMMARY | 2024-02-25 01:34 | XMS_ITS ---
Author Organization [facility] [employer] Address [address] [place] [address] Care Team Providers Care Sightseeing Guide Name Role Phone Zoe Kinney Unavailable [phone] Results Component Value Reference Range Notes UDT Reviewed date:01/25/2024 10:54:37 PM Interpretation: Performing Lab: Notes/Report: 0 THC n 0 - 50 ng/ml Cocaine n 0 - 300 ng/ml Amphetamine p 0 - 1000 ng/ml Buprenorphine (BUP) n 0 - 10 ng/ml Secobarbital (Bar) n 0 - 300 ng/ml Oxazepam (BZO) n 0 - 300 ng/ml 4-crlcnmmewk-9,3-fpjhbmbc-9,3-diphenylpyrrolidine (JUDD P) n 0 - 300 ng/ml Methamphetamine (MET) n 0 - 1000 ng/ml Methylenedioxymethamphetamine (MDMA) n 0 - 500 ng/ml Morphine (MOP 300/ZGB2259) n 0 - 300 ng/ml Methadone (MTD) [...] 01/25/2024 Encounters Encounter Location Date Provider Diagnosis [facility] [employer] [facility] [address] [address] 01/25/2024 Zoe Kinney Attention-deficit hyperactivity disorder, combined [...] Provider Name:Zoe berumen, 03/27/2024 08:30:00 AM, [address], [facility] [address], [address], Progress Notes * BELKYS MARTINEZ SDOB:1985 (38 yo F)Acc No.[id number]:01/25/2024 Patient:?BELKYS MARTINEZ Provider:?Zoe Kinney :1985???Age:38 Y???Sex:Female D ate:01/25/2024 Address:[address] 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Morphine (MOP 300/PYX3903) n 0 - 300 ng/ml * ?Methadone (MTD) n 0 - 300 ng/ml * ?Phencyclidine (PCP) n 0 - 25 ng/ml * ?Propoxyphene (PPX) n 0 - 300 ng/ml * ?Nortriptyline (TCA) n 0 - 1000 ng/ml * ?Oxycodone n 0 - 300 ng/ml * Procedure Codes:?21365 BEHAV ASSMT W/SCORE & DOCD/STAND [id number] VISIT COMPLEXITY INHERENT TO ONGOING CARE RELATED TO A PATIENT'S SINGLE, SERIOUS CONDITION OR A COMPLEX [id number] DRUG TST PRSMV READ INSTRMNT ASSTD DIR OPT OBS * Follow Up:?2 Months * Billing Information: * Visit Code:? 27072 OFFICE OUTPATIENT VISIT 25 MINUTES DETAILED HISTORY AND EXAM/MODERATE MEDICAL DECISION MAKING. * Procedure Codes:? 96744 BEHAV ASSMT W/SCORE & DOCD/STAND INSTRUMENT. G2211 VISIT COMPLEXITY INHERENT TO ONGOING CARE RELATED TO A PATIENT'S SINGLE, SERIOUS CONDITION OR A COMPLEX CONDITION. 42927 DRUG TST PRSMV READ INSTRMNT ASSTD DIR OPT OBS. * ICATION DEVELOPMENT LIAISON Electronically co-signed by Emmanuel Arnold MD on 02/02/2024 at 04:07 PM APPLICATION DEVELOPMENT LIAISON Sign off status: Completed Addendum: * ? true * Provider:Yanci Kinney Date:? 024 Generated for Talon pink/Rolando/eTransmitting on:?02/25/2024 01:34 AM APPLICATION DEVELOPMENT LIAISON History and Physical Notes * HPI (History [...] Screening Findings: P ositve Follow-Up for Depression: [facility] treatment assessment, Patient follow-up to return when [...] Interpretation of Total: (5 to 9) Mild [place]-Suicide Severity Rating Scale Suicide Risk (CSRS-screener) in [...]
--- OUTSIDE RECORDS SUMMARY | 2024-02-25 01:34 | XMS_ITS ---
Author Organization [facility] [employer] Address [address] [facility] [address] [place] [address] Care Team Providers Care Air Intelligence Officer Name Role Phone Zoe Kinney Unavailable [phone] REASON FOR VISIT Refill for Vyvanse Medications Medication SIG (Take, Route, Frequency, Duration) Notes Start Date End Date Status Lisdexamfetamine Dimesylate 50 MG 1 capsule in the morning Orally Once a day for 30 days 01/06/2024 Active Social History Sex Assigned At : Social History Observation Description Sex Assigned At Female Encounters Encounter Location Date Provider Diagnosis [facility] [address] [facility] [address] [place] [address] 01/06/2024 Zoe Kinney Attention-deficit hyperactivity disorder, combined [...] 03/27/2024 08:30:00 AM, [address], [facility] [address], [place], [address], Progress Notes * BELKYS MARTINEZ SDOB:1985 (38 yo F)Acc No.[id number]:01/06/2024 Patient:?BELKYS MARTINEZ :1985???Age:38 Y???Sex:Female Address:[address] [place], [address] * Refills? Refill Lisdexamfetamine Dimesylate Capsule, 50 MG, Orally, 30, 1 capsule in the morning, Once a day, 30 days, Refills=0 * true * Date:? Generated for Talon pink/Rolando/Jeromesmitting on:?02/25/2024 01:34 AM [employer]
--- OUTSIDE RECORDS SUMMARY | 2024-02-25 01:35 | XMS_ITS | Encounter Summary ---
Author Organization [facility] Address [address] [place] [address] Care Team Providers Care Coater Helper Name Role Phone No, Physician Primary Care Provider [phone] Encounter Details Date Type Department Care Team (Late st Contact Info) Description 07/06/2023 Telephone Family Phys[facility] [address] [place] [address] Karlie Bloom NP [address] [place] [address] Social History Tobacco Use Types Packs/Day Years Used Date Smoking Tobacco: Never Smokeless Tobacco: Never Personal Safety Answer Date Recorded Getting School Help Needed Not on file 04/22 Comments Unknown Sex and Gender Information Value Date Recorded Sex Assigned at Not on file Legal Sex Female 10:59 PM CDT Gender Identity Female 11/05/2020 10:28 AM CDT Sexual Orientation Straight 11/05/2020 10 :28 AM CDT documented as of this encounter Miscellaneous Notes * Telephone Encounter - Gale Lee - 07/06/2023 7:27 AM CDT lvm for patient to r/s due to provider being out of the office documented in this encounter Plan of Treatment Not on file documented as of this encounter Visit Diagnoses Not on filedocumented in this encounter Care Teams Coater Helper Relationship Specialty Start Date End Date No, Physician PCP - General 11/02/20 documented as of this encounter
--- OUTSIDE RECORDS SUMMARY | 2024-02-25 01:35 | XMS_ITS | Encounter Summary ---
Author Organization [facility] Address [address] [address] Care Team Providers Care Mortician Supplies Sales Representative Name Role Phone No, Physician Primary Care Provider [phone] Reason for Visit * Reason Comments COVID-19 EVALUATION sinus congestion for 2 weeks . Elevated temperatures began 1 day ago. Pt is fully vaccinated Encounter Details Date Type Department Care Team (Late st Contact Info) Description 11/03/2020 10:45 AM CDT Office Visit [facility] [address] [place] [id number] Feli Rocha, EVELYN [address] [address] Viral URI with cough (Primary Dx) Social History Tobacco Use Types Packs/Day Years Used Date Smoking Tobacco: Never Smokeless Tobacco: Never Comments Unknown Sex and Gender Information Value Date Recorded Sex Assigned at Not on file Legal Sex Female 10:59 PM CDT Gender Identity Female 11/05/2020 10:28 AM CDT Sexual Orientation Straight 11/05/2020 10 :28 AM CDT documented as of this encounter Last Filed Vital Signs Vital Sign Reading Time Taken Comments Blood Pressure 124/70 11/03/2020 10:45 AM CDT Pulse 102 11/03/2020 10:45 AM CDT Temperature 37.6 ??C (99.7 ??F) 11/03/2020 10:45 AM C DT Respiratory Rate 16 11/03/2020 10:45 AM CDT Oxygen Saturation 99% 11/03/2020 10:45 AM CDT Inhaled Oxygen Concentration - - Weight 70.3 kg (155 lb) 11/03/2020 10:45 AM CDT Height 172.7 cm (5' 8 ) 11/03/2020 10:45 AM CDT Body Mass Index 23.57 11/03/2020 10:45 AM CDT documented in this encounter Patient Instructions * Patient Instructions* Feli Rocha, EVELYN - 11/03/2020 10:45 AM CDT The CDC and local health departments recommend that you isolate yourself to prevent any potential spread of the virus until you have the results of your test. If you develop worsening symptoms of respiratory distress, call 911 or go to the nearest emergency room. What does self-isolation mean? - Remain at home or in a comparable setting - No public activities - You should not perform any public travel Do MY close contacts need to be isolated? - YES they should self-isolate until you have the results of your test. When will my results be available? - There is not a rapid test available at this time. It may take several days to get the results of this test. If you have MyChart, the results will be available to you at the same time as we receive them. Regardless, we will call every patient with positive or negative results. The [facility] Department will be reaching out to all patients who have a positive test for further discussion and monitoring. The CDC and [facility] have much more information available online. The websites are: - cdc.gov - [facility].org Additional resources around self-isolation and how to prevent spread are at: cdc.gov/coronavirus/2019-ncov/about/index.html If symptoms are severe, rest at home for the first 2 to 3 days. When you resume activity, don't letyourself get too tired. Don't smoke. If you need help stopping, talk with your healthcare provider. Avoid being exposed to cigarette smoke (yours or others???). You may use acetaminophen to control pain and fever, unless another medicine was prescribed. If youhave chronic liver disease, have ever had a stomach ulcer or gastrointestinal bleeding talk with your healthcare provider before using these medicines. Aspirin should never be given to anyone under 18 years of age who is ill with a viral infection or fever. It may cause severe liver or brain damage. Your appetite may be poor, so a light diet is fine. Stay well hydrated by drinking 6 to 8 glasses of fluids per day (water, soft drinks, juices, tea, or soup). Extra fluids will help loosen secretions in the nose and lungs. Onxs-eye-hlybxoh cold medicines will not shorten the length of time you???re sick, but they may be helpful for the following symptoms: cough, sore throat, and nasal and sinus congestion. If you take prescription medicines, ask your healthcare provider or pharmacist which dhgf-xfm-nqkslyh medicines are safe to use. (Note: Don't use decongestants if you have high blood pressure.) If you develop worsening of shortness of breath, high fevers or other concerning symptoms, go to the ER. Instructions following testing for COVID-19: Today you received test for SARS-COV2 (COVID-19). Please follow the instructions below regarding quarantine and return to work/daycare/school based on your results, symptoms and exposures. You will be notified in 24-48 hours of your COVID-19 swab results. If you are NEGATIVE, AND: 1. NO symptoms and NO known/possible exposure: NO need to isolate. 2. NO symptoms and YES known/possible exposure: quarantine for 14 days after last potential exposure. A negative test of a specific day cannot be used to release from quarantine since the patience could become positive during the 14- day period. 3. YES symptoms and NO known/possible exposure: quarantine until without fever for 24 hours AND symptoms improve. 4. YES symptoms and YES known/possible exposure: you must quarantine for 14 days from last known exposure date. A negative test of a specific day cannot be used to release from quarantine since the patient could become positive during the 14 day period. 5. YES symptoms and YES known/possible exposure and HAVE BEEN VACCINATED: you ONLY QUARANTINE untilyou are fever free AND symptoms improve. 6. NO symptoms and YES known/possible exposure and HAVE BEEN VACCINATED: NO RECOMMENDATION FOR QUARANTINE. If you are POSITIVE and NOT VACCINATED: You should isolate for 10 days from onset of symptoms, NOT FROM DATE OF POSITIVE TEST. You must be without fever for 24 hours AND symptoms improving AND released by the local health department. All household contacts must quarantine for 14 days from last potential exposure to positive patient. If household contacts cannot fully isolate, then quarantine for household contacts extends for 14 days beyond the 10 days from start of symptoms (may be up to 24 days of quarantine). ??? COVID-19 is a highly communicable disease (very contagious) that is spread through droplets viacough, sneeze, speech at close contact. ??? You will need to continue to wear a mask per CDC guidelines. ??? If at any time you feel significantly short of breath or chest pain/tightness, or change in mental status please go to the ER. If you are POSITIVE and VACCINATED: ??? Although the risk that fully vaccinated people could become infected with COVID-19 is low, any fully vaccinated person who experiences symptoms consistent with COVID-19 should isolate themselves from others, be clinically evaluated for COVID-19, and tested for SARS-CoV-2 if indicated. ??? The fully vaccinated people that test positive for COVID should quarantine for 10-days from theonset of symptoms. ??? The symptomatic fully vaccinated person should inform their healthcare provider of their vaccination status at the time of presentation to care. COVID-19 vaccines are effective at protecting you from getting sick. Based on what we know about COVID-19 vaccines, people who have been fully vaccinated can do things that they had stopped doing because of the pandemic. These recommendations can help you make decisions about daily activities after you are fully vaccinated. They are not intended for healthcare settings. Have You Been Fully Vaccinated? In general, people are considered fully vaccinated: ? 2 weeks after their second dose in a 2-dose series, such as the Pfizer or Moderna vaccines, or ? ? 2 weeks after a single-dose vaccine, such as Luigi [employer] Luigi? s Kristen vaccine ??? If you don???t meet these requirements, regardless of your age, you are NOT fully vaccinated. Keep taking all precautions until you are fully vaccinated. If you have a condition or are taking medications that weaken your immune system, you may NOT be fully protected even if you are fully vaccinated. Talk to your healthcare provider. Even after vaccination, you may need to continue taking all precautions. What You Can Do? If you???ve been fully vaccinated: ??? You can resume activities that you did prior to the pandemic. ??? You can resume activities without wearing a mask or staying 6 feet apart, except where requiredby federal, state, local, [place], or territorial laws, rules, and regulations, including local business and workplace guidance. ??? If you travel in the [place], you do not need to get tested before or after travel or self-quarantine after travel. ??? You need to pay close attention to the situation at your international destination before traveling outside the [place]. ??? You do NOT need to get tested before leaving the [place] unless your destination requiresit. ??? You still need to show a negative test result or documentation of recovery from COVID-19 beforeboarding an international flight to the [place]. ??? You should still get tested 3-5 days after international travel. ??? You do NOT need to self-quarantine after arriving in the [place]. ??? If you???ve been around someone who has COVID-19, you do not need to stay away from others or get tested unless you have symptoms. ??? However, if you live or work in a correctional or fdc facility or a homeless half-way and are around someone who has COVID-19, you should still get tested, even if you don???t have symptoms. What You Should Keep Doing? For now, if you???ve been fully vaccinated: ??? You will still need to follow guidance at your workplace and local businesses. ??? If you travel, you should still take steps to protect yourself and others. ??? Masks are required on planes, buses, trains, and other forms of public transportation travelinginto, within, or out of the [place] and in [place] transportation hubs such as airports and stations. Travelers are not required to wear a mask in outdoor areas of a conveyance (like on a ferry orthe top deck of a bus). CDC recommends that travelers who are not fully vaccinated continue to weara mask and maintain physical distance when traveling. ??? Fully vaccinated international travelers arriving in the [place] are still required to get tested 3 days before travel by air into the [place] (or show documentation of recovery from COVID-19 in the past 3 months) and should still get tested 3-5 days after their trip. ??? You should still watch out for symptoms of COVID-19, especially if you???ve been around someonewho is sick. If you have symptoms of COVID-19, you should get tested and stay home and away from others. ??? People who have a condition or are taking medications that weaken the immune system, should talk to their healthcare provider to discuss their activities. They may need to keep taking all precautions to prevent COVID-19. What We Know? COVID-19 vaccines are effective at preventing COVID-19 disease, especially severe illness and . ??? COVID-19 vaccines reduce the risk of people spreading COVID-19. What We???re Still Learning ??? How effective the vaccines are against variants of the virus that causes COVID-19. Early data show the vaccines may work against some variants but could be less effective against others. ??? How well the vaccines protect people with weakened immune systems, including people who take immunosuppressive medications. ??? How long COVID-19 vaccines can protect people. ??? As we know more, CDC will continue to update our recommendations for both vaccinated and unvaccinated people. All information from CDC web site documented in this encounter Ordered Prescriptions Prescription Sig Dispense Quantity Refills Last Filled Start Date End Date benzonatate (TESSALON) 200 mg capsuleIndications :Viral URI with cough Take 1 capsule (200 mg total) by mouth 3 (three) times a day as needed for cough 42 capsule 11/03/2020 documented in this encounter Progress Notes * Feli Rocha NP - 11/03/2020 10:45 AM CDT Images from the original note were not included. Patient ID: Kojo Linares is a 35 y.o. female followed by No, Physician Patient was wearing the following PPE: mask. MA was wearing the following PPE: mask, gown, gloves and face shield. Provider was wearing the following PPE: mask, gown, gloves and face shield. Chief Complaint Patient presents with ??? COVID-19 EVALUATION sinus congestion for 2 weeks . Elevated temperatures began 1 day ago. Pt is fully vaccinated Cough This is a new problem. The current episode started 1 to 4 weeks ago (10/23/2020). The problem has been gradually worsening. The problem occurs every few minutes. The cough is non-productive and productive of sputum. Associated symptoms include chills, a fever (99.9), headaches, nasal congestion, postnasal drip and rhinorrhea. Pertinent negatives include no chest pain, ear congestion, ear pain, eye redness, heartburn, hemoptysis, myalgias, rash, sore throat, shortness of breath, sweats, weight loss or wheezing. The symptoms are aggravated by dust, lying down, pollens and stress. Treatments tried: ibuprofen and peyman. The treatment provided mild relief. There is no history of environmental allergies. Patient presents to clinic for assessment of Chief Complaint Patient presents with ??? COVID-19 EVALUATION sinus congestion for 2 weeks . Elevated temperatures began 1 day ago. Pt is fully vaccinated . Patient reports DRY COUGH, FEVER UP TO 99.9, NASAL CONGESTION, HEADACHE, FATIGUE and CHILLS Patient reports this has been going on for 6 days. Patient with sick or suspected COVID-19 contacts: No Patient has following risks for COVID-19: none Patient has been fully vaccinated for Covid-19. Last vaccine 04/2020. 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 Review of Systems Constitutional: Positive for chills, fatigue and fever (99.9). Negative for appetite change and weight loss. HENT: Positive for postnasal drip and rhinorrhea. Negative for congestion, ear pain, sore throat and trouble swallowing. Eyes: Negative for pain, discharge, redness and itching. Respiratory: Positive for cough. Negative for hemoptysis, chest tightness, shortness of breath and wheezing. Cardiovascular: Negative for chest pain and leg swelling. Gastrointestinal: Negative for abdominal pain, constipation, diarrhea, heartburn, nausea and vomiting. Genitourinary: Negative for difficulty urinating, dysuria, frequency and urgency. Musculoskeletal: Negative for back pain, myalgias and neck pain. Skin: Negative for rash and wound. Allergic/Immunologic: Negative for environmental allergies and food allergies. Neurological: Positive for headaches. Negative for dizziness and weakness. Current Outpatient Medications Medication Sig Dispense Refill ??? venlafaxine XR (Effexor XR) 75 mg 24 hr capsule No current facility-administered medications for this visit. Past Medical History: Diagnosis Date ??? No known health problems Immunization History Administered Date(s) Administered ? ? 4th aspect (J&J) SARS-CoV-2 Vaccination 04/28/2020 Social History Tobacco Use Smoking Status Never Smoker Smokeless Tobacco Never Used Vitals: 11/03/20 1045 BP: 124/70 BP Location: Left arm Patient Position: Sitting Pulse: 102 Resp: 16 Temp: 37.6 ??C (99.7 ??F) TempSrc: Oral SpO2: 99% Weight: 70.3 kg (155 lb) Height: 172.7 cm (5' 8 ) Physical Exam Vitals and nursing note reviewed. Constitutional: General: She is awake. Appearance: Normal appearance. She is well-developed, well-groomed and normal weight. HENT: Head: Normocephalic and atraumatic. Right Ear: External ear normal. Tympanic membrane is retracted. Left Ear: External ear normal. Tympanic membrane is retracted. Nose: Nose normal. Mouth/Throat: Lips: [place]. Mouth: Mucous membranes are moist. Pharynx: Oropharynx is clear. Eyes: General: Lids are normal. Conjunctiva/sclera: Conjunctivae normal. Pupils: Pupils are equal, round, and reactive to light. Cardiovascular: Rate and Rhythm: Normal rate and regular rhythm. Pulmonary: Effort: Pulmonary effort is normal. Breath sounds: Normal breath sounds. No wheezing. Abdominal: General: Bowel sounds are normal. Palpations: Abdomen is soft. Musculoskeletal: General: Normal range of motion. Cervical back: Normal range of motion and neck supple. Lymphadenopathy: Cervical: No cervical adenopathy. Skin: General: Skin is warm and dry. Capillary Refill: Capillary refill takes less than 2 seconds. Neurological: Mental Status: She is alert and oriented to person, place, and time. Psychiatric: Behavior: Behavior normal. Behavior is cooperative. Assessment/Plan Diagnoses and all orders for this visit: Sinus congestion (Primary) - COVID-19 Coronavirus RNA Nasopharyngeal; Future Patient advised to continue Nasocort use. Discussed COVID testing reasoning Reviewed isolation/quarantine protocols Discussed symptomatic relief of symptoms Discussed need to return to ER for further evaluation including worsening fevers, shortness of breath, of other concerning symptoms Advised to rest and stay adequately hydrated Advised to stay out of work and excuse given explaining when patient can return to work Orders Placed This Encounter Procedures ??? COVID-19 Coronavirus RNA Nasopharyngeal Standing Status: Future Standing Expiration Date: 11/03/2021 Order Specific Question: Is the patient experiencing any symptoms consistent with COVID (eg. Fever,cough, shortness of breath)? Answer: Yes Order Specific Question: What is the reason for testing? Answer: Symptoms of COVID-19 in low-risk group (batch) Order Specific Question: Date of Symptom Onset Answer: 10/20/2020 Order Specific Question: Is the patient hospitalized? Answer: No Order Specific Question: Is the patient admitted to an ICU? Answer: No Order Specific Question: Is this the first COVID-19 test for this patient? Answer: No Order Specific Question: Does the patient currently work in a healthcare facility with direct patient contact? Answer: No Order Specific Question: Is the patient a resident of a congregate care or living setting? Answer: No Order Specific Question: Is the patient ? Answer: No Feli Rocha NP documented in this encounter Plan of Treatment Not on file documented as of this encounter Visit Diagnoses Diagnosis Viral URI with cough- Primary documented in this encounter Historical Medications * This list may reflect changes made after this encounter. Medication Sig Dispense Quantity Refills Last Filled Start D ate End Date venlafaxine XR (Effexor XR) 75 mg 24 hr capsule 10/03/2019 added in this encounter Additional Health Concerns Infection Onset Date Last Indicated Resolved Time COVID: Suspected 11/03/2020 11/03/2020 11/03/2020 10:54 AM CDT COVID: Suspected 11/03/2020 11/03/2020 11/17/2020 3:05 AM CDT documented as of this encounter Care Teams Mortician Supplies Sales Representative Relationship Specialty Start Date End Date No, Physician PCP - General 11/02/20 documented as of this encounter
--- OUTSIDE RECORDS SUMMARY | 2024-02-25 01:35 | XMS_ITS | Patient Health Record ---
Author Organization [facility] Address [address] [place] [address] Care Team Providers Care Financial Consultant Name Role Phone Zoe Kinney Unavailable [phone] Viri Coleman Unavailable [phone] Munira Rowley Unavailable [phone] Elise Haider Unavailable [phone] Migration, Provider Unavailable Unavailable Allergies Allergen (clinical [...] negative Phenocyclidine negative THC negative UDT Reviewed date:01/25/2024 10:54:37 PM Interpretation: Performing Lab: Notes/Report: THC n 0 - 50 ng/ml Cocaine n 0 - 300 ng/ml Amphetamine p 0 - 1000 ng/ml Buprenorphine (BUP) n 0 - 10 ng/ml Secobarbital (Bar) n 0 - 300 ng/ml Oxazepam (BZO) n 0 - 300 ng/ml 7-lhgmncneda-4,7-grcvhnjf-0, 3-diphenylpyrrolidine (EDDP) n 0 - 300 ng/ml Methamphetamine (MET) n 0 - 1000 ng/ml Methylenedioxymethamphetamine (MDMA) n 0 - 500 ng/ml Morphine (MOP 300/[id number]) n 0 - 300 ng/ml Methadone (MTD) n 0 - 300 ng/ml Phencyclidine (PCP) n 0 - 25 ng/ml Propoxyphene (PPX) n 0 - 300 ng/ml Nortriptyline (TCA) n 0 - 1000 ng/ml Oxycodone n 0 - 300 ng/ml UDT Reviewed date:08/30/2023 09:22:35 PM Interpretation: Performing Lab: Notes/Report: THC neg 0 - 50 ng/ml Cocaine neg 0 - 300 ng/ml Amphetamine pos 0 - 1000 ng/ml Buprenorphine (BUP) neg 0 - 10 ng/ml Secobarbital (Bar) neg 0 - 300 ng/ml Oxazepam (BZO) neg 0 - 300 ng/ml 0-gpuxiupzwt-1,5-rpoaaqdd-4, 3-diphenylpyrrolidine (EDDP) neg 0 - 300 ng/ml Methamphetamine (MET) neg 0 - 1000 ng/ml Methylenedioxymethamphetamine (MDMA) neg 0 - 500 ng/ml Morphine (MOP 300/[id number]) neg 0 - 300 ng/ml Methadone (MTD) neg 0 - 300 ng/ml Phencyclidine (PCP) neg 0 - 25 ng/ml Propoxyphene (PPX) neg 0 - 300 ng/ml Nortriptyline (TCA) neg 0 - 1000 ng/ml Reason For Referral No Information Medications [...] employed?: Yes Who is your employer?: [employer] 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 Marriage and Sexuality What [...] Do you have a medical power of bull fiddle player?: No Public Health and Travel Have you [...] employer?: [employer] 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 Marriage and Sexuality What [...] Do you have a medical power of bull fiddle player?: No Public Health and Travel Have you [...] employer?: [employer] 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 Marriage and Sexuality What [...] Do you have a medical power of bull fiddle player?: No Public Health and Travel Have you [...] employer?: [employer] 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 Marriage and Sexuality What [...] Do you have a medical power of bull fiddle player?: No Public Health and Travel Have you been to an area known to be high risk for COVID-19?: No Gender Identity and LGBTQ Identity Gender identity: Identifies as Female Assigned sex at : Female Sexual orientation: Straight or heterosexual Problems Problem Type SNOMED Code ICD Code Onset Dates Problem Status W/U Status Risk Notes Problem Mild recurrent major depression (27858379) Major depressive disorder, recurrent, mild (F33.0) 05/27/19 24 Active confirmed Problem Generalized anxiety disorder (16991189) Generalized anxiety disorder (F41.1) 05/27/19 24 Active confirmed Problem Primary insomnia (2971812) Primary insomnia (F51.01) 05/27/19 24 Active confirmed Problem Attention deficit hyperactivity disorder, combined type (76342990) Attention-deficit hyperactivity disorder, combined type (F90.2) 07/07/19 Active confirmed Problem Obsessive-compuls marshall disorder (016386910) Obsessive-compuls marshall disorder, unspecified (F42.9) 05/27/19 24 Active confirmed Vital Signs Heart Rate 105 /min 01/25/2024 Blood pressure diastolic 75 mm Hg 01/25/2024 Height-cm 172.72 cm 01/25/2024 Weight-kg 67.59 kg 01/25/2024 Height 68.00 in 01/25/2024 Blood pressure systolic 114 mm Hg 01/25/2024 Weight 149 lbs 01/25/2024 BMI 22.65 kg/m2 01/25/2024 Encounters Encounter Location Date Provider Diagnosis [facility] [address] [address] 03/01/2023 Elise Haider Major depressive disorder, recurrent, mild F33.0 ; Primary insomnia F51.01 ; Generalized anxiety disorder F41.1 ; Obsessive-compulsive disorder, unspecified F42.9 and Attention-deficit hyperactivity disorder, combined type F90.2 [facility] [address] [place] [address] 04/01/2023 Elise Haider Attention-deficit hyperactivity disorder, combined type F90.2 ; Primary insomnia F51.01 ; Generalized anxiety disorder F41.1 ; Major depressive disorder, recurrent, mild F33.0 and Obsessive-compulsive disorder, unspecified F42.9 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 [employer] [address] 07/07/2023 Simone Lai Attention-deficit hyperactivity disorder, combined type F90.[address] [facility] [place] [address] [facility] [address] [place] [address] 08/30/2023 Elise Haider Attention-deficit hyperactivity disorder, combined type F90.2 ; Major depressive disorder, recurrent, mild F33.0 ; Obsessive-compulsive disorder, unspecified F42.9 ; Generalized anxiety disorder F41.1 and Primary insomnia F51.[address] [address] 09/29/2023 Elise Haider Attention-deficit hyperactivity disorder, combined type F90.2 ; Major depressive disorder, recurrent, mild F33.0 ; Obsessive-compulsive disorder, unspecified F42.9 ; Generalized anxiety disorder F41.1 and Primary insomnia F51.[address] [facility] [place] [id number] [facility] [address] [place] [address] 10/06/2023 Viri Martinez Attention-deficit hyperactivity disorder, combined type F90.2 ; Major depressive disorder, recurrent, mild F33.0 ; Obsessive-compulsive disorder, unspecified F42.9 and Generalized anxiety disorder F41.[address] [facility] [place] [address] [place] [address] 11/10/2023 Elisecristobal Haider Attention-deficit hyperactivity disorder, combined type F90.2 ; Major depressive disorder, recurrent, mild F33.0 ; Obsessive-compulsive disorder, unspecified F42.9 ; Generalized anxiety disorder F41.1 and Primary insomnia F51.01 [facility], [facility] [address] [place] [address] 12/09/2023 Viri Martinez Attention-deficit hyperactivity disorder, combined type F90.2 ; Major depressive disorder, recurrent, mild F33.0 ; Obsessive-compulsive disorder, unspecified F42.9 and Generalized anxiety disorder F41.1 [facility] [address] [place] [address] 01/25/2024 Zoe Goodeaisha Attention-deficit hyperactivity disorder, combined type F90.2 ; Major depressive disorder, recurrent, mild F33.0 ; Generalized anxiety disorder F41.1 ; Obsessive-compulsive disorder, unspecified F42.9 and Primary insomnia F51.01 [facility], [facility] [address] [place] [address] 04/29/2023 Provider Migration [facility], [facility] [address] [place] [address] 05/31/2023 Provider Migration [facility], [facility] [address] [place] [address] 07/07/2023 Provider Migration [facility], [facility] [address] [place] [address] 07/08/2023 Provider [facility], [facility] [address] [place] [address] 07/10/2023 Provider Migration [facility], [facility] [address] [place] [address] 07/11/2023 Provider Migration [facility], [facility] [address] [place] [address] 12/27/2023 Elise Haider [facility], [facility] [address] [place] [address] 08/04/2023 Elise Haider [facility], [facility] [address] [place] [address] 08/19/2023 Elise Haider [facility], [facility] [address] [place] [address] 09/24/2023 Munira Rowley Attention-deficit hyperactivity disorder, combined type F90.2 [facility], [facility] [address] [place] [address] 10/12/2023 Elise Haider [facility], [facility] [address] [place] [address] 10/15/2023 Elisecristobal Haider [facility], [facility] [address] [place] [address] 10/29/2023 Elise Haider [facility], [facility] [address] [place] [address] 10/29/2023 Elise Meliza Attention-deficit hyperactivity disorder, combined type F90.2 [facility], [facility] [address] [place] [address] 10/29/2023 Elise Haider [facility], [facility] [address] [place] [address] 12/03/2023 Elise Haider Attention-deficit hyperactivity disorder, combined type F90.2 and Major depressive disorder, recurrent, mild F33.0 [facility], [facility] [address] [place] [address] 12/18/2023 Elisecristobal Bedollatabatha [facility], [facility] [address] [place] [address] 12/20/2023 Elise Bedollapollomoonpolo [facility], [facility] [address] [place] [address] 12/20/2023 Elise Graemetabatha [facility], [facility] [address] [place] [address] 01/06/2024 Zoe Kinney Attention-deficit hyperactivity disorder, combined type F90.2 [facility], [facility] [address] [place] [address] 01/27/2024 Zoe Kinney Attention-deficit hyperactivity disorder, combined [...] month, earlier if concerns send scripts to [facility] except vyvanse, she is going to check local pharmacy to see if they have in stock and let us know. med: cont vyvanse 50mg qam 09/29/2023 Major depressive disorder, recurrent, mild (ICD-10 [...] - F90.2) cont vyvanse 50mg qam 10/06/2023 Major depressive disorder, recurrent, mild (ICD-10 [...] ): Kojo was born and raised in [place]. She has an older sister (4.5 years) that lives in [place]. Parents are (pt was 15 years old [...] hypercritical. Education and Occupation: Bachelor's Degree in [employer] and [employer] from [employer]. Then got her associates in [employer], [employer] and [employer]. 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 : None Support System: and co-workers are [...] None Spirituality: Pt was raised attending a [employer]. She does not believe in organized taoist but hopeful there is a God, afterlife. Other family members with mental illness or substance abuse/addiction issues: Father, recovering alcoholic Mom, anger, depression, and anxiety Sister, depression Legal: None 10/29/2023 Attention-defic it hyperactivity disorder, combined type (ICD-10 - F90.2) 10/06/2023 Attention-defic it hyperactivity disorder, combined type [...] ): Kojo was born and raised in [place]. She has an older sister (4.5 years) that lives in [place]. Parents are (pt was 15 years old when they ). Mom is remarried. Dad was remarried but in 2015. Childhood Family Dynamic: Pt and her of 5 years have a 4 year old daughter. They do not plan to have any more children. Trauma/PTSD: Dad was an alcoholic, a closet drinker. He was angry, not physically violent but a bully and annoying. Mom was hypercritical. Education and Occupation: Bachelor's Degree in [employer] and [employer] from [employer]. Then got her associates in [employer], [employer]. 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 : None Support System: and co-workers are [...] None Spirituality: Pt was raised attending a [employer]. She does not believe in organized taoist but hopeful there is a God, afterlife. Other family members with mental illness or substance abuse/addiction issues: Father, recovering alcoholic Mom, anger, depression, and anxiety Sister, depression Legal: None 11/10/2023 Attention-defic it hyperactivity disorder, combined type (ICD-10 - F90.2) cont vyvanse 50mg qam 12/03/2023 Attention-defic it hyperactivity disorder, combined type (ICD-10 - F90.2) 12/09/2023 Attention-defic it hyperactivity disorder, combined type [...] Introduce and practice the tapping technique (Emotional [place] Technique) as an additional coping strategy. Family [...] responsibilities. Marital and Social Support - Assessment: Kjoo mentions that her 's behavior and lack [...] impact of negative discussions on their relationship. 01/06/2024 Attention-defic it hyperactivity disorder, combined type [...] 2 months, sooner if concens arise 01/25/2024 Attention-defic it hyperactivity disorder, combined type [...] in 2 months, sooner if concens arise 01/27/2024 Attention-defic it hyperactivity disorder, combined type (ICD-10 - F90.2) 03/01/2023 Major depressive disorder, recurrent, mild (ICD-10 - F33.0) 03/01/2023 Generalized anxiety disorder (ICD-10 - F41.1) 03/01/2023 Primary insomnia (ICD-10 - F51.01) 03/01/2023 Attention-defic it hyperactivity disorder, combined type (ICD-10 - F90.2) 03/01/2023 Obsessive-compu lsive disorder, unspecified (ICD-10 - F42.9) 04/01/2023 Major depressive disorder, recurrent, mild (ICD-10 [...] Obsessive-compu lsive disorder, unspecified (ICD-10 - F42.9) 05/27/2023 Major depressive disorder, recurrent, mild (ICD-10 - F33.0) 05/27/2023 Generalized anxiety disorder (ICD-10 - F41.1) 05/27/2023 Primary insomnia (ICD-10 - F51.01) 05/27/2023 Attention-defic it hyperactivity disorder, combined type (ICD-10 - F90.2) 05/27/2023 Other usp (current) drug therapy (ICD-10 - Z79.899) 05/27/2023 Obsessive-compu lsive disorder, unspecified (ICD-10 - F42.9) 07/07/2023 Attention-defic it hyperactivity disorder, combined type (ICD-10 - F90.2) 08/30/2023 Major depressive disorder, recurrent, mild (ICD-10 - F33.0) decrease bupropion xl to 150mg qam 12/03/2023 Major depressive disorder, recurrent, mild (ICD-10 - F33.0) 01/25/2024 Generalized anxiety disorder (ICD-10 - F41.1) [...] 2 months, sooner if concens arise 12/09/2023 Major depressive disorder, recurrent, mild (ICD-10 [...] Introduce and practice the tapping technique (Emotional [place] Technique) as an additional coping strategy. Family [...] impact of negative discussions on their relationship. 10/06/2023 Obsessive-compu lsive disorder, unspecified (ICD-10 - [...] ): Kojo was born and raised in [place]. She has an older sister (4.5 years) that lives in [place]. Parents are (pt was 15 years old [...] hypercritical. Education and Occupation: Bachelor's Degree in [employer] and [employer] from [employer]. Then got her associates in [employer], [employer]. 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 : None Support System: and co-workers are [...] None Spirituality: Pt was raised attending a [employer]. She does not believe in organized taoist but hopeful there is a God, afterlife. Other family members with mental illness or substance abuse/addiction issues: Father, recovering alcoholic Mom, anger, depression, and anxiety Sister, depression Legal: None 11/10/2023 Major depressive disorder, recurrent, mild (ICD-10 - F33.0) stop bupropion xl 150mg qam; monitor mood cont therapy overall doing better. she would like to stop wellbutrin to see if sx manageable with less medications, review pros/cons, discontinuat ion. started counseling, cont f/u in 6 wks, earlier if concerns 09/29/2023 Obsessive-compu lsive disorder, unspecified (ICD-10 - F42.9) cont sertraline 150mg qhs start therapy 08/30/2023 Obsessive-compu lsive disorder, unspecified (ICD-10 - F42.9) cont sertraline 150mg qhs 09/24/2023 Attention-defic it hyperactivity disorder, combined type (ICD-10 - F90.2) Electronic Prior Authorization was requested for Vyvanse 50 MG Capsule. Provider can order medication once approval received. 09/29/2023 Generalized anxiety disorder (ICD-10 - F41.1) [...] ): Kojo was born and raised in [place]. She has an older sister (4.5 years) that lives in [place]. Parents are (pt was 15 years old [...] hypercritical. 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. Then got her associates in [employer], [employer] and [employer]. 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 : None Support System: and co-workers are [...] None Spirituality: Pt was raised attending a [employer]. She does not believe in organized taoist but hopeful there is a God, afterlife. Other family members with mental illness or substance abuse/addiction issues: Father, recovering alcoholic Mom, anger, depression, and anxiety Sister, depression Legal: None 11/10/2023 Obsessive-compu lsive disorder, unspecified (ICD-10 - F42.9) cont sertraline 150mg qhs cont therapy 12/09/2023 Obsessive-compu lsive disorder, unspecified (ICD-10 - [...] Introduce and practice the tapping technique (Emotional [place] Technique) as an additional coping strategy. Family [...] of negative discussions on their relationship. 01/25/2024 Obsessive-compu lsive disorder, unspecified (ICD-10 - [...] 2 months, sooner if concens arise 08/30/2023 Generalized anxiety disorder (ICD-10 - F41.1) as aboverefer to therapy 08/30/2023 Primary insomnia (ICD-10 - F51.01) cont [...] Introduce and practice the tapping technique (Emotional [place] Technique) as an additional coping strategy. Family [...] of negative discussions on their relationship. 01/25/2024 Primary insomnia (ICD-10 - F51.01) Assessment [...] in 2 months, sooner if concens arise 11/10/2023 Generalized anxiety disorder (ICD-10 - F41.1) as abovecont therapy 09/29/2023 Primary insomnia (ICD-10 - F51.01) cont trazodone 50mg qhs PRN insomniapractice good sleep hygiene 11/10/2023 Primary insomnia (ICD-10 - F51.01) cont trazodone 50mg qhs PRN insomniapractice good sleep hygiene 08/30/2023 Other Plan Of Treatment Next Appt Details Provider Name:Zoe berumen, 03/27/2024 08:30:00 AM, [address] [facility], [facility] [address], [place], [address], Insurance Providers Payer Name Payer Address Payer Phone Subscriber Number Group Number Insured Name Patient Relationship to Insured Coverage Start Date Coverage End Date [facility] [address] [place] [address] [id number] KOJO MARTINEZ Self - patient is the [...]
--- OUTSIDE RECORDS SUMMARY | 2024-02-25 01:35 | XMS_ITS | Encounter Summary ---
Author Organization [facility] Address [address] [place] [address] Care Team Providers Care Double Reamer Operator Name Role Phone No, Physician Primary Care Provider [phone] Encounter Details Date Type Department Care Team (Late st Contact Info) Description 11/03/2020 [facility] [address] [facility] [address] [place] [address] Feli Rocha NP [address] [place] [address] Social History Tobacco Use Types Packs/Day Years Used Date Smoking Tobacco: Never Assessed Comments Unknown Sex and Gender Information Value Date Recorded Sex Assigned at Not on file Legal Sex Female 10:59 PM CDT Gender Identity Female 11/05/2020 10:28 AM CDT Sexual Orientation Straight 11/05/2020 10 :28 AM CDT documented as of this encounter Miscellaneous Notes * Result Encounter Note - Quynh Hall - 11/04/2020 12:08 PM CDT Patient returned call to [facility]. Informed of negative Covid result and to continue to self isolate until 10 days from onset of symptoms and fever free for 24 hours without fever reducing medications. Patient verbalized understanding * Result Encounter Note - Quynh Hall - 11/04/2020 12:08 PM CDT .neg * Result Encounter Note - Sharri Villa NP - 11/04/2020 7:52 AM CDT Please notify patient of negative COVID-19 test. If patient was symptomatic, patient should continue to self isolate until at least 10 days have passed since symptom onset and they have been fever free without the use of fever reducing medications for at least 24 hours. documented in this encounter Plan of Treatment Not on file documented as of this encounter Procedures Procedure Name Priority Date/Time Associated Diagnosis Comments COVID-19 CORONAVIRUS RNA Routine 11/03/2020 10:55 AM CDT documented in this encounter Results * COVID-19 Coronavirus RNA Nasopharyngeal (11/03/2020 10:55 AM CDT) COVID-19 RNA Negative Negative [facility] Comment: Interpretive data: Synonyms for this test include: PCR and NAAT . ??This test is performed using the [employer] Xpert Xpress assay. This is a real-time RT-PCR test intended for the qualitative detection of nucleic acid from the SARS-CoV-2. This assay has been reviewed by the FDA for Emergency Use Authorization (EUA). The performance characteristics have been verified by the performing laboratory. Results must be considered in the clinical context and a negative result does not rule out infection. Interpretive data last revised March 28, 2020. First COVID-19 test? No [facility] Employeed in healthcare? No [facility] status? No [facility] Group care resident? No [facility] Hospitalized? No [facility] Is patient in ICU? No [facility] Symptomatic as defined by CDC? Yes [facility] Date of onset 10/20/2020 [facility] Nasopharyngeal 11/03/2020 10 :55 AM CDT 11/04/2020 12:19 AM CDT us Feli Rocha NP LAB MICROBIOLOGY - GENERAL OR DERABLES Final Result [facility] [address] Department [place] [address] documented in this encounter Visit Diagnoses Not on filedocumented in this encounter Additional Health Concerns Infection Onset Date Last Indicated Resolved Time COVID: Suspected 11/03/2020 11/03/2020 11/03/2020 10:54 AM CDT COVID: Suspected 11/03/2020 11/03/2020 11/17/2020 3:05 AM CDT documented as of this encounter Care Teams Double Reamer Operator Relationship Specialty Start Date End Date No, Physician PCP - General 11/02/20 documented as of this encounter
--- OUTSIDE RECORDS SUMMARY | 2024-02-25 01:35 | XMS_ITS | Clinical Summary ---
Author Organization [facility] Virtual Care Address [address] [place] [phone] Phone Care Team Providers Care Head Sampler Name Role Phone No, Physician Primary Care Provider Allergies Active Allergy Reactions Criticality Noted Date Comments Sulfa (Sulfonamide Antibiotics) Unknown 09/22 Medications venlafaxine XR (Effexor XR) 75 mg 24 hr capsule 10/03/2019 Activ e Active Problems No known active problems Surgical History Surgery Date Site/Laterality Comments NO PAST SURGERIES Medical History Medical History Date Comments No known health problems Family History Medical History Relation Name Comments No Known Problems Father Hypertension Mother Relation Name Status Comments Father Alive Mother Alive Social History Tobacco Use Types Packs/Day Years [...] Orientation Straight 11/05/2020 10 :28 AM CDT Obstetrics History Last Filed Vital Signs Vital Sign Reading [...] Mass Index 23.57 11/03/2020 10:45 AM CDT Plan of Treatment Health Maintenance Due Date Last Done Comments Cervical Cancer Screening 1986 Depression Screening 1986 Hepatitis C Screening 1986 Varicella Vaccines (1 of 2 - 13+ 2-dose series) 10/09/1999 Regular Well Visit/Exam 18-64 2004 Covid-19 Vaccine ( - 2023- season) 2023 04/28/2020 Influenza Vaccine (#1) 2023 0, 12/16/2018, 10/28/2017, Additional history exists DTaP/Tdap/Td Vaccine (3 - Td or Tdap) 07/21/2029 07/22/2019, 11/26/2014 HPV Vaccines Aged Out No longer eligi ble based on patient's age to complete this topic Pneumococcal vaccine <65 Aged Out No longer eligible based on patient's age to complete this topic Insurance Care Teams Head Sampler Relationship Specialty Start Date End Date No, Physician PCP - General 11/02/20
--- OUTSIDE RECORDS SUMMARY | 2024-02-25 01:35 | XMS_ITS | Encounter Summary ---
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[employer] Name Role Phone No, Physician Primary Care Provider [phone] Encounter Details Date Type Department Care Team (Late st Contact Info) Description 11/04/2020 Telephone [facility] [address] [place] [id number] Feli Rocha NP [address] [place] [address] Social History Tobacco Use Types Packs/Day Years Used Date Smoking Tobacco: Never Assessed Comments Unknown Sex and Gender Information Value Date Recorded Sex Assigned at Not on file Legal Sex Female 10:59 PM CDT Gender Identity Female 11/05/2020 10:28 AM CDT Sexual Orientation Straight 11/05/2020 10 :28 AM CDT documented as of this encounter Miscellaneous Notes * Telephone Encounter - [facility] - 11/04/2020 12:08 PM CDT Patient returned call to [facility]. Informed of negative Covid result and to continue to self isolate until 10 days from onset of symptoms and fever free for 24 hours without fever reducing medications. Patient verbalized understanding * Telephone Encounter - Quyn[facility] - 11/04/2020 12:08 PM CDT ----- Message from Sharri Villa NP sent at 11/04/2020 7:52 AM CDT ----- Please notify patient of negative COVID-19 test. 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
--- OUTSIDE RECORDS SUMMARY | 2024-02-25 01:35 | XMS_ITS | Referral Summary ---
Author Organization [facility] Care Address [address] [place] [phone] Phone Care Team Providers Care Dentist Name Role Phone No, Physician Primary Care Provider [phone] Allergies Active Allergy Reactions Criticality Noted Date Comments Sulfa (Sulfonamide Antibiotics) Unknown 09/22 Medications venlafaxine XR (Effexor XR) 75 mg 24 hr capsule 10/03/2019 Activ e Active Problems No known active problems Social History Tobacco Use Types Packs/Day Years [...] Orientation Straight 11/05/2020 10 :28 AM CDT Last Filed Vital Signs Vital Sign Reading [...] 11/03/2020 10:45 AM CDT Plan of Treatment Not on file Insurance Care Teams Dentist Relationship Specialty Start Date End Date No, Physician PCP - General 11/02/20
== END 2024-02-18 11:12 | disposition home or self-care (01) ==
PROVIDERS: PCP Nurse Practitioner; Visit Provider Obstetrics & Gynecology
PROC: (CPT 49320; principal; 2024-02-18 08:30)
PROC: 0U5B8ZZ Destruction of Endometrium, Via Natural or Artificial Opening Endoscopic (ICD-10-PCS; CPT 58563; 2024-02-18 08:30)
DX: Z30.2 Encounter for sterilization (principal); N83.8 Other noninflammatory disorders of ovary, fallopian tube and broad ligament; F41.9 Anxiety disorder, unspecified; G47.00 Insomnia, unspecified; Z79.891 Long term (current) use of opiate analgesic; Z79.1 Long term (current) use of non-steroidal anti-inflammatories (NSAID); Z82.49 Family history of ischemic heart disease and other diseases of the circulatory system
CPT/HCPCS: 58563; 58661; 88302; 88305; A9270; J0330; J1100; J1885; J2003; J2250; J2405; J2704; J3010; J7030; J7120

== ENCOUNTER 2024-04-13 09:00 | Outpatient (RCR) | payer BC, SELFPAY ==
--- NOTE | 2024-03-06 16:16 | OPREHPOC ---
Outpatient Therapy Plan of Care This is a Multidisciplinary Plan of Care that may contain components documented by all disciplines (PT, OT, and ST.) PT Problem 1 PT Problem #1 Knowledge Deficit PT Goal 1 Goal / Goal Update 1. Pt to report neck pain no greater than 2/10 in the last week 2. pt to report no headache in the last week Target Visit 6 PT Problem 2 PT Problem #2 Impaired Range of Motion PT Goal 1 Goal / Goal Update 1. Pt to improve cervical lateral flexion to 35 deg bernie PT Problem 3 PT Problem #3 Impaired Functional Mobility PT Goal 1 Goal / Goal Update 1. Pt to demonstrate good upright posture during treatment. Target Visit 6
--- NOTE | 2024-03-06 16:16 | PTOPEVAL1 ---
Assessment and note entered by Diego Rodríguez, PT, DPT Evaluation Information Assessment Status Evaluation Diagnosis cervicalgia ICD-10 Condition Codes (PT) Cervicalgia M54.2 Onset ~1 year Subjective Information Pt reports neck stiffness or pain to some extent everyday. She has tried resident care associate and massage, both helped to some degree. Pt states she has not been able to pick her daughter up for the last few weeks and this has helped with her pain. 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 Reports about 1 headache a week, at the base of her head. Has not had any radicular symptoms in the last couple of months. Reported Pain Level Pain Score 3: Self Report Assessment PT Clinical Summary Pt presents to therapy today for her initial evaluation with a diagnosis of cervicalgia. Today she demonstrates good thoracic and cervical ROM with only slight limitations. In sitting she demonstrates forward and rounded shoulders with a forward head. There is tenderness in her sub occipitals. Skilled therapy services are indicated to improve body mechanics, posture awareness, and to manage pain reports. Plan of Care Interventions Electrical Stimulation,Gait Training,Hot Pack/Cold Pack,Manual Therapy,Neuro Re-education,Patient/ Caregiver Education,Therapeutic Activities, Therapeutic Exercise PT Services Indicated Yes Treatment Frequency and 1x/wk for 6 visits Duration These treatments will address the objective and functional deficits as defined above. The patient will be advanced safely and appropriately in order for the patient to progress towards his/her prior level of function. Additional exercises will be introduced and as well as a comprehensive home exercise program upon discharge, if needed, ?to ensure carryover of functional gains achieved in the clinic. This treatment plan has been reviewed and agreement upon by the patient.
--- NOTE | 2024-04-13 09:55 | OPREHPOC ---
Outpatient Therapy Plan of Care This is a Multidisciplinary Plan of Care that may contain components documented by all disciplines (PT, OT, and ST.) PT Problem 1 PT Problem #1 Knowledge Deficit PT Goal 1 Goal / Goal Update 1. Pt to report neck pain no greater than 2/10 in the last week 2. pt to report no headache in the last week 04/13/24: 1. progressing 2. met Target Visit 6 Progress Partially Met PT Problem 2 PT Problem #2 Impaired Range of Motion PT Goal 1 Goal / Goal Update 1. Pt to improve cervical lateral flexion to 35 deg bernie 04/13/24: 1. met Progress Met PT Problem 3 PT Problem #3 Impaired Functional Mobility PT Goal 1 Goal / Goal Update 1. Pt to demonstrate good upright posture during treatment. 04/13/24: 1. met Target Visit 6 Progress Met
--- NOTE | 2024-04-13 09:55 | PTOPDC ---
Assessment and note entered by Diego Rodríguez, PT, DPT Evaluation Information Assessment Status Dishcarge Diagnosis cervicalgia ICD-10 Condition Codes (PT) Cervicalgia M54.2 Onset ~1 year Subjective Information Pt states she feels like she is doing a little better. She states she does her exercises regularly and they seem to help. She reports a decrease in headaches as well. Reported Pain Level Pain Score 0: Self Report Assessment PT Clinical Summary Pt presents to therapy today for her progress report following 5 visits of skilled therapy to treat her diagnosis of cervicalgia. Today she demonstrates improved cervical ROM, improved body mechanics, and improved scapular stability. She reports a decreased frequency of head and neck pain. Pt plans to continue her HEP IND and does not require continuation of skilled therapy services. She will be discharged at this time. Plan of Care PT Services Indicated No
== END 2024-04-14 09:45 | disposition home or self-care (01) ==
LOC: ANHGOSHPT 09:00
PROVIDERS: PCP Nurse Practitioner; Visit Provider Nurse Practitioner
DX: M54.2 Cervicalgia (principal)
CPT/HCPCS: 97014; 97110; 97140; 97161; 97530; G0283